=== PATIENT | male | born 1950 | race Caucasian/White ===

== ENCOUNTER 2016-07-30 22:06 | Inpatient (IN) | payer OTHER, MEDICARE ==
[2016-07-30] VITALS (7 sets, daily range): BP systolic 149–165; BP diastolic 75–97; PULSE 75–93; RESP 16–18; TEMP 98.6; O2SAT 97–98
[~2016-07-30] VITALS: Ht 177.8 cm; Wt 118.5 kg
--- NOTE | 2016-07-30 22:25 | PD ---
HPI Chief Complaint: Chest Pain Time Seen by Provider: 22:10 Travel History International Travel<30 days: No Contact w/Intl Traveler<30days: No Traveled to known affect area: No History of Present Illness HPI This 66-year-old male is complaining of chest pressure. He says over the last couple of days he's had about 4 episodes of chest pressure. It is a substernal pressure that lasts 15 minutes or so. It came on after eating initially and subsequent episodes of also occurred after eating. He gets a little bit cold and clammy with the discomfort. He has had a little bit of shortness of breath. There is no radiation. He has no history of cardiac disease. He has had hypertension in the past and was on medication but was able to come off the medicine will also weight area he was told a few weeks ago that he had an irregular heartbeat when he went for acupuncture. He cut back on coffee and he believes that heartbeat became regular. He has recently gone back to coughing again. He did take an aspirin 325 mg prior to coming here. PFSH Social History Tobacco Use: No Allergies-Medications (Allergen,Severity, Reaction): Coded Allergies: No Known Allergies (Unverified , 07/30/16) Reported Meds & Prescriptions Reported Meds & Active Scripts Active Reported Multiple Vitamin 1 Tab 1 Tab PO DAILY Vitamin B-12 (Cyanocobalamin) 1,000 Mcg Tab 1,000 Mcg PO DAILY Vitamin D (Cholecalciferol) 1,000 Unit Tab 1,000 Units PO DAILY Vitamin E 200 Unit Cap 200 Units PO DAILY Vitamin C (Ascorbic Acid) 250 Mg Tab 250 Mg PO DAILY Fish Oil + D3 (Fish Oil-Cholecalciferol) 1,200-1,000 Mg-Unit Cap 1 Cap PO DAILY Aspirin Low Dose (Aspirin) 81 Mg Chew 81 Mg CHEW DAILY Review of Systems General / Constitutional: No: Fever, Chills Eyes: No: Diploplia, Blurred Vision HENT: No: Headaches, Vertigo Cardiovascular: Positive: Chest Pain or Discomfort, No: Palpitations, Irregular Rhythm Respiratory: No: Cough, Shortness of Breath Gastrointestinal: No: Vomiting Genitourinary: No: Urgency, Frequency Musculoskeletal: No: Myalgias Skin: No Rash Neurologic: No: Weakness Hematologic/Lymphatic: No: Easy Bruising Physical Exam Narrative GENERAL: Well-developed male. SKIN: Focused skin assessment warm and clammy on arrival HEAD: Atraumatic. Normocephalic. EYES: Pupils equal and round. No scleral icterus. No injection or drainage. ENT: No nasal bleeding or discharge. Mucous membranes pink and moist. NECK: Trachea midline. No JVD. CARDIOVASCULAR: Regular rate and rhythm. No murmur appreciated. RESPIRATORY: No accessory muscle use. Clear to auscultation. Breath sounds equal bilaterally. GASTROINTESTINAL: Abdomen soft, non-tender, nondistended. Hepatic and splenic margins not palpable. MUSCULOSKELETAL: No obvious deformities. No clubbing. No cyanosis. No edema. NEUROLOGICAL: Awake and alert. No obvious cranial nerve deficits. Motor grossly within normal limits. Normal speech. PSYCHIATRIC: Appropriate mood and affect; insight and judgment normal. Data Data Last Documented VS Vital Signs Date Time Temp Pulse Resp B/P Pulse Ox O2 Delivery O2 Flow Rate FiO2 07/30/16 23:17 161/87 07/30/16 23:05 77 07/30/16 22:45 98 Nasal Cannula 2 07/30/16 22:06 98.6 18 Orders Electrocardiogram (07/30/16 22:19) Basic Metabolic Panel (Bmp) (07/30/16 22:19) B-Type Natriuretic Peptide (07/30/16 22:19) Complete Blood Count With Diff (07/30/16 22:19) Magnesium (Mg) (07/30/16 22:19) Prothrombin Time / Inr (Pt) (07/30/16 22:19) Act Partial Throm Time (Ptt) (07/30/16 22:19) Troponin I (07/30/16 22:19) Chest, Single Ap (07/30/16 22:19) Ecg Monitoring (07/30/16 22:19) Bilateral Bp Monitoring (07/30/16 22:19) Iv Access Insert/Monitor (07/30/16 22:19) Oximetry (07/30/16 22:19) Oxygen Administration (07/30/16 22:19) Sodium Chloride 0.9% Flush (Ns Flush) (07/30/16 22:30) Nitroglycerin Sl (Nitrostat Sl) (07/30/16 22:30) Nitroglycerin 2% Oint (Nitroglycerin 2% (07/30/16 22:30) Nitroglycerin Sl (Nitrostat Sl) (07/30/16 23:15) Nitroglycerin-Dextrose Inj (Nitroglyceri (07/30/16 23:15) Heparin Infusion AMY.Q1H (07/30/16 23:06) Heparin Inj (Heparin Inj) (07/30/16 23:15) Heparin Inj (Heparin Inj) (07/31/16 05:15) Heparin Inj (Heparin Inj) (07/31/16 05:15) Heparin-D5w Inj (Heparin-D5w Inj) (07/30/16 23:15) Cbc No Diff, Includes Plts (08/02/16 06:00) Act Partial Throm Time (Ptt) (07/31/16 06:06) Occult Blood (Hemoccult) Stool (07/30/16 23:06) Admit Order (Ed Use Only) (07/30/16 23:15) Consult Cardiology (07/30/16 ) Labs Laboratory Tests Test 07/30/16 22:15 White Blood Count 7.6 TH/MM3 Red Blood Count 5.44 MIL/MM3 Hemoglobin 16.0 GM/DL Hematocrit 47.9 % Mean Corpuscular Volume 88.0 FL Mean Corpuscular Hemoglobin 29.5 PG Mean Corpuscular Hemoglobin 33.5 % Concent Red Cell Distribution Width 12.8 % Platelet Count 199 TH/MM3 Mean Platelet Volume 8.6 FL Neutrophils (%) (Auto) 59.7 % Lymphocytes (%) (Auto) 27.4 % Monocytes (%) (Auto) 10.1 % Eosinophils (%) (Auto) 1.3 % Basophils (%) (Auto) 1.5 % Neutrophils # (Auto) 4.5 TH/MM3 Lymphocytes # (Auto) 2.1 TH/MM3 Monocytes # (Auto) 0.8 TH/MM3 Eosinophils # (Auto) 0.1 TH/MM3 Basophils # (Auto) 0.1 TH/MM3 CBC Comment DIFF FINAL Differential Comment Prothrombin Time 10.7 SEC Prothromb Time International 1.0 RATIO Ratio Activated Partial 27.8 SEC Thromboplast Time Sodium Level 143 MEQ/L Potassium Level 4.2 MEQ/L Chloride Level 106 MEQ/L Carbon Dioxide Level 31.1 MEQ/L Anion Gap 6 MEQ/L Blood Urea Nitrogen 20 MG/DL Creatinine 1.60 MG/DL Estimat Glomerular Filtration 43 ML/MIN Rate Random Glucose 126 MG/DL Calcium Level 8.7 MG/DL Magnesium Level 2.3 MG/DL Troponin I LESS THAN 0.02 NG/ML B-Type Natriuretic Peptide 240 PG/ML MDM Medical Decision Making Medical Screen Exam Complete: Yes Emergency Medical Condition: Yes Medical Record Reviewed: Yes Differential Diagnosis Differential includes unstable angina, MO, gastritis, cholecystitis Narrative Course His initial EKG shows a sinus rhythm with quite frequent PVCs. He has a pattern of a sinus beat followed by 2 consecutive multiform PVCs. He does appear to be some ST depression in the sinus beats that about a millimeter in the inferior and lateral leads. Patient had taken aspirin at home. He was given a sublingual nitroglycerin and this has relieved his pressure fairly quickly. A repeat EKG has been done and shows sinus rhythm. At this time he appears to be in trigeminy with every third beat a PVC. He does have some minimal ST depression in V4 V5 and V6. Chest x-ray shows normal size heart. Lung berry are clear. Patient has had a recurrence of the pain and has been given an additional nitroglycerin sublingual. He will be started on a nitroglycerin drip. His initial troponin has come back normal. Case was discussed with Dr. Menjivar who asked that he be transferred to [facility] [place] Diagnosis Primary Impression: Acute coronary syndrome Additional Impression: Dysrhythmia, cardiac Qualified Code: I49.8 - Other cardiac arrhythmia Admitting Information Admitting Physician Requests: Admit Phill Martins MD July 30, 2016 22:25
[2016-07-30] MEDS ORDERED: NITROGLYCERIN 2% OINT 1 GM PACKET TOPICAL ONE (22:30)
[2016-07-30] MEDS ORDERED: SODIUM CHLORIDE 0.9% FLUSH 10 ML FLUSH IVF PRN (22:30)
[2016-07-30] MEDS ORDERED: NITROGLYCERIN 0.4 MG SL 25 TABS/BTL SL ONE ×2 (22:30→23:15)
[2016-07-30 22:36] LABS: AUTOMATED NEUTROPHIL # 4.5 TH/MM3 (1.8-7.7); BASOPHIL # 0.1 TH/MM3 (0-0.2); BASOPHIL % 1.5 % (0.0-2.0); EOSINOPHIL # 0.1 TH/MM3 (0-0.4); EOSINOPHIL % 1.3 % (0.0-4.0); HEMATOCRIT 47.9 % (39.0-51.0); HEMO FLAGS DIFF FINAL; LYMPH % 27.4 % (9.0-44.0); LYMPHOCYTE # 2.1 TH/MM3 (1.0-4.8); MEAN CORPUSCULAR HEMOGLOBIN 29.5 PG (27.0-34.0); MEAN CORPUSCULAR HGB CONC 33.5 % (32.0-36.0); MONO % 10.1 % (0.0-8.0); NEUT % 59.7 % (16.0-70.0); PLATELET COUNT 199 TH/MM3 (150-450); RED BLOOD COUNT 5.44 MIL/MM3 (4.50-5.90); RED CELL DISTRIBUTION WIDTH 12.8 % (11.6-17.2); WHITE BLOOD COUNT 7.6 TH/MM3 (4.0-11.0)
[2016-07-30 22:45] LABS: CHLORIDE 106 MEQ/L (98-107); POTASSIUM 4.2 MEQ/L (3.5-5.1); SODIUM (NA) 143 MEQ/L (136-145)
[2016-07-30 22:48] LABS: ANION GAP 6 MEQ/L (5-15); BICARBONATE 31.1 MEQ/L (21.0-32.0); BLOOD UREA NITROGEN 20 MG/DL (7-18); MAGNESIUM 2.3 MG/DL (1.5-2.5)
--- NOTE | 2016-07-30 22:50 | RADHPO ---
EXAM DATE/TIME: 07/30/2016 22:33 [facility] COMPARISON: No previous studies available for comparison. INDICATIONS : Chest pain. MEDICAL HISTORY : None. SURGICAL HISTORY : None. ENCOUNTER: Initial ACUITY: 3 days PAIN SCORE: 7/10 LOCATION: Bilateral chest FINDINGS: A single view of the chest demonstrates the lungs to be symmetrically aerated without evidence of mas s, infiltrate or effusion. The cardiomediastinal contours are unremarkable. Osseous structures are intact. CONCLUSION: Normal examination. Cristhian Bates Jr., MD on July 30, 2016 at 22:48 Board Certified Radiologist. This report was verified electronically.
[2016-07-30 22:51] LABS: GLOMERULAR FILTRATION RATE 43 ML/MIN (>89)
[2016-07-30] MEDS ORDERED: VITA200C3 PO (23:02)
[2016-07-30] MEDS ORDERED: FISHCAP4 PO (23:02)
[2016-07-30] MEDS ORDERED: VITA100064 PO (23:02)
[2016-07-30] MEDS ORDERED: VITA10002 PO (23:02)
[2016-07-30] MEDS ORDERED: VITA250T3 PO (23:02)
[2016-07-30] MEDS ORDERED: MULTTAB67 PO (23:02)
[2016-07-30] MEDS ORDERED: ASPI81CH37 CHEW (23:02)
[2016-07-30 23:04] LABS: APTT (PATIENT) 27.8 SEC (24.3-30.1); PROTHROMBIN TIME - PATIENT 10.7 SEC (9.8-11.6)
[2016-07-30] MEDS ORDERED: HEPARIN SODIUM - IV 10,000 UNITS/10 ML VIAL IV ONE (23:15)
[2016-07-30] MEDS ORDERED: NITROGLYCERIN-DEXTROSE INJ 250 ML IV ONE (23:15)
[2016-07-30] MEDS ORDERED: HEPARIN-D5W INJ 250 ML IV SCH (23:15)
[2016-07-30] MEDS ORDERED: MORPHINE SULFATE 4 MG/ML INJ IV PRN (23:45)
[2016-07-30] MEDS ORDERED: ONDANSETRON HCL 4 MG/2 ML VIAL IVP PRN (23:45)
[2016-07-30] MEDS ORDERED: SENNOSIDES 8.6 MG TAB PO PRN (23:45)
[2016-07-30] MEDS ORDERED: SODIUM CHLORIDE 0.9% FLUSH 10 ML FLUSH IV FLUSH PRN (23:45)
[2016-07-30] MEDS ORDERED: LACTULOSE SYRUP 20 GM/30 ML CUP PO PRN (23:45)
[2016-07-30] MEDS ORDERED: BISACODYL 10 MG SUPP RECTAL PRN (23:45)
[2016-07-30] MEDS ORDERED: MAGNESIUM HYDROXIDE SUSP 30 ML CUP PO PRN (23:45)
[2016-07-30] MEDS ORDERED: ACETAMINOPHEN 325 MG TAB PO PRN (23:45)
[2016-07-30] MEDS ORDERED: ACETAMINOPHEN/HYDROcodone 325 MG/5 MG TAB PO PRN (23:45)
[2016-07-31] VITALS (26 sets, daily range): BP systolic 106–171; BP diastolic 54–95; PULSE 49–84; RESP 12–20; TEMP 97.4–98.7; O2SAT 94–100
[2016-07-31] MEDS: SODIUM CHLOR 0.9% 1000 ML INJ 1,000 ML IV SCH ×3 (03:19→19:31)
--- NOTE | 2016-07-31 03:56 | HHI.HP ---
[facility] Bam Nassar MD Admission Diagnosis ACUTE CORONARY SYDROME Diagnoses: Chief Complaint: Chest pain Travel History International Travel<30 Days: No Contact w/Intl Traveler <30 Da: No Traveled to Known Affected Are: No History of Present Illness This 66-year-old male patient with past medical history which includes hypertension is no longer on medication after weight loss, borderline hyperlipidemia reports he does not take any medications for his cholesterol just watches his diet. Patient reports he's been in his normal state of health which includes going to the gym regularly and an, "active lifestyle." Patient reports for the past 3 days he's been having chest pain after eating. Chest pain offers only after meals and typically lasts 30 minutes then resolve spontaneously. Patient reports chest pain started this evening after dinner and did not resolve so he proceeded to the emergency department for further evaluation and treatment. Patient describes the chest pain as a pressure sensation located in midsternal area 7 out of 10 at its maximum with no radiation. Chest pain did have associated shortness of breath and diaphoresis. Chest pain is not affected by activity. This evening chest pain resolved after sublingual nitroglycerin. Patient is currently on heparin as well as nitroglycerin drip and reports he has no chest pain. EKG reviewed and reveals sinus rhythm rate 88 bpm with frequent PVCs and ST depression V4, V5 and V6. 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 Patient reports he did have coffee approximately 8 PM this evening. Patient denies recent travel, lower extremity edema, calf pain, fevers, chills, nausea, vomiting, diarrhea, constipation, changes in weight, abdominal pain or changes in appetite. Patient also denies any history of GERD. Review of Systems Except as stated in HPI: all other systems reviewed are Neg Past Family Social History Past Medical History Hypertension the past no longer on medication after weight loss, borderline hyperlipidemia not on medication Past Surgical History Bilateral inguinal hernia repair, bilateral blepharoplasty Reported Medications Multiple Vitamin 1 Tab 1 Tab PO DAILY Vitamin B-12 (Cyanocobalamin) 1,000 Mcg Tab 1,000 Mcg PO DAILY Vitamin D (Cholecalciferol) 1,000 Unit Tab 1,000 Units PO DAILY Vitamin E 200 Unit Cap 200 Units PO DAILY Vitamin C (Ascorbic Acid) 250 Mg Tab 250 Mg PO DAILY Fish Oil + D3 (Fish Oil-Cholecalciferol) 1,200-1,000 Mg-Unit Cap 1 Cap PO DAILY Aspirin Low Dose (Aspirin) 81 Mg Chew 81 Mg CHEW DAILY Allergies: Coded Allergies: No Known Allergies (Unverified , 07/30/16) Active Ordered Medications Current Medications Medications (Trade) Dose Ordered Sig/Carolin Route Start Time Stop Time Status Last Admin (Heparin Inj) 5,000 units UNSCH PRN IV 07/31/16 05:15 Heparin Sodium (Porcine) 2500 units 2,500 units UNSCH PRN IV 07/31/16 05:15 Heparin Sodium/ Dextrose 250 ml @ 0 mls/hr TITRATE IV 07/30/16 23:15 07/30/16 23:24 (NS 1000 ml Inj) 1,000 ml @ 100 mls/hr Q10H IV 07/30/16 23:31 07/31/16 03:19 (NS Flush) 2 ml UNSCH PRN IV FLUSH 07/30/16 23:45 (NS Flush) 2 ml BID IV FLUSH 07/31/16 09:00 (Zofran Inj) 4 mg Q6H PRN IVP 07/30/16 23:45 (Tylenol) 650 mg Q6H PRN PO 07/30/16 23:45 (Downey 5-325 Mg) 1 tab Q4H PRN PO 07/30/16 23:45 (Morphine Inj) 2 mg Q3H PRN IV 07/30/16 23:45 (Cyndi-Colace) 1 tab BID PO 07/31/16 09:00 (Milk Of Magnesia Liq) 30 ml Q12H PRN PO 07/30/16 23:45 (Senokot) 17.2 mg Q12H PRN PO 07/30/16 23:45 (Dulcolax Supp) 10 mg DAILY PRN RECTAL 07/30/16 23:45 (Lactulose Liq) 30 ml DAILY PRN PO 07/30/16 23:45 Family History Patient's mother secondary to cervical cancer Patient's father in his 70s in his sleep of unknown causes did have CAD history with a CABG in his 70s Social History Patient lives at home with his 47 years Is retired from construction business [employer] he drinks one to 2 glasses of wine a few days a week with dinner not on a daily basis Denies tobacco use now or in the past Denies illicit drug use Physical Exam Vital Signs Vital Signs Date Time Temp Pulse Resp B/P Pulse Ox O2 Delivery O2 Flow Rate FiO2 07/31/16 03:00 97.8 62 12 147/77 98 07/31/16 01:50 62 121/66 96 Nasal Cannula 2 07/31/16 01:20 66 126/74 97 Nasal Cannula 2 07/31/16 00:19 72 16 137/72 98 Nasal Cannula 2 07/30/16 23:42 77 16 152/75 97 Nasal Cannula 2 07/30/16 23:17 161/87 07/30/16 23:05 77 156/86 07/30/16 22:45 75 162/76 98 Nasal Cannula 2 07/30/16 22:30 80 165/77 97 Nasal Cannula 2 07/30/16 22:20 149/97 07/30/16 22:13 Nasal Cannula 2 07/30/16 22:10 93 07/30/16 22:06 98.6 93 18 97 Physical Exam GENERAL: This is a well-nourished, well-developed patient, in no apparent distress. SKIN: No rashes, ecchymoses or lesions. Cool and dry. HEAD: Atraumatic. Normocephalic. No temporal or scalp tenderness. EYES: Extraocular motions intact. No scleral icterus. No injection or drainage. CARDIOVASCULAR: Regular rate and rhythm without murmurs, gallops, or rubs. RESPIRATORY: Clear to auscultation. Breath sounds equal bilaterally. No wheezes , rales, or rhonchi. GASTROINTESTINAL: Abdomen soft, non-tender, nondistended. No guarding. MUSCULOSKELETAL: Extremities without clubbing, cyanosis, or edema. No joint tenderness, effusion, or edema noted. No calf tenderness. Negative Homans sign bilaterally. NEUROLOGICAL: Awake and alert. No focal deficits appreciated. Motor and sensory grossly within normal limits. Five out of 5 muscle strength in all muscle groups. Normal speech. Laboratory Laboratory Tests Test 07/30/16 22:15 White Blood Count 7.6 Red Blood Count 5.44 Hemoglobin 16.0 Hematocrit 47.9 Mean Corpuscular Volume 88.0 Mean Corpuscular Hemoglobin 29.5 Mean Corpuscular Hemoglobin 33.5 Concent Red Cell Distribution Width 12.8 Platelet Count 199 Mean Platelet Volume 8.6 Neutrophils (%) (Auto) 59.7 Lymphocytes (%) (Auto) 27.4 Monocytes (%) (Auto) 10.1 Eosinophils (%) (Auto) 1.3 Basophils (%) (Auto) 1.5 Neutrophils # (Auto) 4.5 Lymphocytes # (Auto) 2.1 Monocytes # (Auto) 0.8 Eosinophils # (Auto) 0.1 Basophils # (Auto) 0.1 CBC Comment DIFF FINAL Differential Comment Prothrombin Time 10.7 Prothromb Time International 1.0 Ratio Activated Partial 27.8 Thromboplast Time Sodium Level 143 Potassium Level 4.2 Chloride Level 106 Carbon Dioxide Level 31.1 Anion Gap 6 Blood Urea Nitrogen 20 Creatinine 1.60 Estimat Glomerular Filtration 43 Rate Random Glucose 126 Calcium Level 8.7 Magnesium Level 2.3 Troponin I LESS THAN 0.02 B-Type Natriuretic Peptide 240 Result Diagram: 07/30/16221407/30/162214 Assessment and Plan Problem List: (1) Chest pain ICD Code: R07.9 Status: Acute (2) Dysrhythmia, cardiac ICD Code: I49.9 Status: Acute Assessment and Plan This 66-year-old male patient with past medical history which includes hypertension and is no longer on medication after weight loss, borderline hyperlipidemia reports he does not take any medications. Patient reports she's been in his normal state of health which includes going to the gym regularly and an, "active lifestyle." Patient reports for the past 3 days he's been having chest pain after eating. Chest pain rule out acute coronary syndrome Initial troponin less than 0.02 Serial enzymes and serial EKGs Initial EKG reveals sinus rhythm rate 88 bpm with frequent PVCs and ST depression V4, V5 and V6 Chest x-ray reviewed and reveals normal exam Heparin drip Nitroglycerin drip Nothing by mouth with normal saline at 100 cc/h Continuous cardiac telemetry 2-D echocardiogram ordered and pending Lipid profile in a.m. Patient takes aspirin daily Will continue daily aspirin dose Nothing by mouth except meds Consultation placed to cardiology Dysrhythmia- sinus rhythm with frequent PVCs/ trigeminy Potassium 4.2, magnesium 2.3 Continuous telemetry monitoring 2-D echocardiogram in a.m. Recheck CMP in a.m. History of hypertension not currently on medication Monitor blood pressure trend Acute kidney injury versus chronic kidney disease Avoid nephrotoxins IV hydration Recheck in a.m. DVT prophylaxis patient is currently on heparin drip Discussed with nursing patient patient's at bedside and Dr. Rodrigez Physician Certification 2 Midnight Certification Type: Admission for Inpatient Services Order for Inpatient Services The services are ordered in accordance with Medicare regulations or non- Medicare payer requirements, as applicable. In the case of services not specified as inpatient-only, they are appropriately provided as inpatient services in accordance with the 2-midnight benchmark. Estimated LOS (days): 2 days is the estimated time the patient will need to remain in the hospital, assuming treatment plan goals are met and no additional complications. Post-Hospital Plan: Home Problem Qualifiers (1) Dysrhythmia, cardiac: Qualified Code: I49.8 - Other cardiac arrhythmia Tika Srivastava July 31, 2016 03:56
[2016-07-31 04:55] LABS: APTT (PATIENT) 93.7 SEC (24.3-30.1)
[2016-07-31] MEDS ORDERED: HEPARIN SODIUM - IV 10,000 UNITS/10 ML VIAL IV PRN ×4 (05:15→16:45)
[2016-07-31] MEDS: ASPIRIN EC 81 MG TABEC PO SCH (08:50)
[2016-07-31] MEDS: SODIUM CHLORIDE 0.9% FLUSH 10 ML FLUSH IV FLUSH SCH ×2 (08:50→21:00)
[2016-07-31] MEDS: DOCUSATE SODIUM 50 MG/SENNA 8.6 MG TAB PO SCH ×2 (08:50→21:41)
[2016-07-31] MEDS ORDERED: amLODIPine BESYLATE 5 MG TAB PO ONE (10:30)
[2016-07-31] MEDS ORDERED: MORPHINE SULFATE 8 MG/ML INJ ONE (11:22)
--- NOTE | 2016-07-31 11:44 | EC ---
Study Study Date:07/31/2016 STUDY CONCLUSIONS SUMMARY - Left ventricle: The cavity size was normal. Wall thickness was normal. Systolic function was mildly reduced. The estimated ejection fraction was in the range of 45% to 50%. Regional wall motion abnormalities cannot be excluded. - Mitral valve: Mild to moderate regurgitation. - Tricuspid valve: Mild regurgitation. - Pulmonary arteries: Systolic pressure was mildly to moderately increased. PA peak pressure: 66mm Hg (S). If LV function is below 40, please consider prescribing an ACEI or ARB or document rationale for non-use. PROCEDURE DATA STUDY STATUS: Elective. Procedure: Transthoracic echocardiography. Image quality was fair. Scanning was performed from the parasternal, apical, and subcostal acoustic windows. Study completion: The patient tolerated the procedure well. Transthoracic echocardiography. M-mode, complete 2D, complete spectral Doppler, and color Doppler. Patient status: Inpatient. CARDIAC ANATOMY LEFT VENTRICLE: The cavity size was normal. Wall thickness was normal. Systolic function was mildly reduced. The estimated ejection fraction was in the range of 45% to 50%. Regional wall motion abnormalities cannot be excluded. AORTIC VALVE: Not well visualized. Normal thickness leaflets. Doppler: Transvalvular velocity was within the normal range. There was no stenosis. No regurgitation. AORTA: Aortic root: The aortic root was normal in size. MITRAL VALVE: Structurally normal valve. Doppler: Transvalvular velocity was within the normal range. There was no evidence for stenosis. Mild to moderate regurgitation. LEFT ATRIUM: The atrium was normal in size. RIGHT VENTRICLE: Poorly visualized. The cavity size was normal. Wall thickness was normal. PULMONIC VALVE: Poorly visualized. Doppler: Transvalvular velocity was within the normal range. There was no evidence for stenosis. Trace regurgitation. TRICUSPID VALVE: Poorly visualized. Structurally normal valve. Doppler: Transvalvular velocity was within the normal range. Mild regurgitation. PULMONARY ARTERY: The main pulmonary artery was normal-sized. Systolic pressure was mildly to moderately increased. RIGHT ATRIUM: Poorly visualized. The atrium was normal in size. PERICARDIUM: There was no pericardial effusion. SYSTEMIC VEINS: Inferior vena cava: The vessel was dilated. BASIC MEASUREMENTS ADULT Normal Left ventricle LV internal dimension, ED, chordal level, 48.6 mm 43-52 PLAX LV internal dimension, ES, chordal level, *39.6 mm 23-38 PLAX Fractional shortening, chordal level, PLAX *19 % >29 LV posterior wall thickness, ED 8.55 mm IVS/LVPW ratio, ED 1.16 <1.3 Ventricular septum Septal thickness, ED 9.93 mm Aortic valve Leaflet separation 21 mm 15-26 Left atrium Anterior-posterior dimension 44 mm Right ventricle RV internal dimension, ED, PLAX 20.7 mm 19-38 BASIC MEASUREMENTS ADULT Normal Aortic valve Leaflet separation 21 mm 15-26 Aorta Root diameter, ED 31 mm 20-37 DOPPLER MEASUREMENTS ADULT Normal Main pulmonary artery Pressure, S *66 mm Hg =30 Mitral valve Maximal regurgitant velocity 581 cm/s Tricuspid valve Regurgitant peak velocity 357 cm/s Peak RV-RA gradient, S 51 mm Hg Maximal regurgitant velocity 357 cm/s Systemic veins Estimated CVP 15 mm Hg Right ventricle RV pressure, S *66 mm Hg <30 LEGEND: Mean values are shown as u=mean value. Asterisk (*) abrams values outside specified normal range. Prepared and signed by Jose Buck [id number]
[2016-07-31] MEDS ORDERED: MORPHINE SULFATE 8 MG/ML INJ IV PUSH ONE (12:00)
[2016-07-31 12:30] LABS: AUTOMATED NEUTROPHIL # 5.6 TH/MM3 (1.8-7.7); BASOPHIL % 0.2 % (0.0-2.0); EOSINOPHIL # 0.1 TH/MM3 (0-0.4); EOSINOPHIL % 0.9 % (0.0-4.0); HEMATOCRIT 42.7 % (39.0-51.0); HEMO FLAGS DIFF FINAL; LYMPH % 13.6 % (9.0-44.0); MEAN CORPUSCULAR HEMOGLOBIN 29.2 PG (27.0-34.0); MONO % 8.3 % (0.0-8.0); PLATELET COUNT 141 TH/MM3 (150-450); RED BLOOD COUNT 4.96 MIL/MM3 (4.50-5.90); RED CELL DISTRIBUTION WIDTH 13.4 % (11.6-17.2); WHITE BLOOD COUNT 7.2 TH/MM3 (4.0-11.0)
[2016-07-31 12:55] LABS: ALKALINE PHOSPHATASE 62 U/L (45-117); ALT (GPT) 35 U/L (12-78); ANION GAP 6 MEQ/L (5-15); AST (GOT) 19 U/L (15-37); BICARBONATE 30.1 MEQ/L (21.0-32.0); BLOOD UREA NITROGEN 19 MG/DL (7-18); CHLORIDE 105 MEQ/L (98-107); GLOMERULAR FILTRATION RATE 76 ML/MIN (>89); HDL CHOLESTEROL 33.6 MG/DL (40.0-60.0); LDL CHOLESTEROL 110 MG/DL (0-99); SODIUM (NA) 141 MEQ/L (136-145); TOTAL BILIRUBIN ADULT 0.5 MG/DL (0.2-1.0)
[2016-07-31] MEDS ORDERED: ATROPINE SULFATE 1 MG/10 ML SYRINGE ONE ×2 (13:39→15:02)
[2016-07-31] MEDS ORDERED: EPINEPHrine HCL (1:10,000) 1 MG/10 ML SYRINGE ONE (13:39)
--- NOTE | 2016-07-31 13:47 | MB ---
cc: FLORENTIN BARBOAS M.D. DATE OF CONSULTATION: 07/31/2016. REASON FOR CONSULTATION: Chest pain, PVCs. HISTORY OF PRESENT ILLNESS: The patient is a very pleasant 66-year-old white male with a history of hypertension, although he no longer takes medications after his blood pressure normalized after weight loss, history of hyperlipidemia who presented to the hospital in [place] last night with chest discomfort. For the past three days he has had intermittent episodes of substernal chest discomfort described as "indigestion" and "congestion". The episodes have been occurring after meals. They were lasting as long as 30 minutes up until last night when the discomfort did not go way. He believes last night's episode lasted 60 minutes and was associated with shortness of breath without nausea or diaphoresis. This morning he has abdominal bloating and increased burping. He denies any recurrent chest discomfort since last night. The patient also denies pleurisy, pedal edema, paroxysmal nocturnal dyspnea, palpitations, lightheadedness, syncope, near-syncope. PAST MEDICAL HISTORY: As above. CARDIAC MEDICATIONS AT HOME: Aspirin 81 milligrams daily. ALLERGIES: NO KNOWN DRUG ALLERGIES. FAMILY HISTORY: The patient's father underwent bypass surgery in his 70s. There is no significant family history of early myocardial infarction. SOCIAL HISTORY: The patient denies any history of alcohol or tobacco abuse. REVIEW OF SYSTEMS: Review of systems as in the history of present illness otherwise negative or noncontributory. He also denies headache, abdominal pain, melena, dyspepsia, bright red blood per rectum. PHYSICAL EXAMINATION: VITAL SIGNS: On physical examination his blood pressure is 157/95 with a pulse of 50, respirations 20. GENERAL: In general he is a well-developed, well-nourished white male in no acute distress. HEAD, EYES, EARS, NOSE, THROAT: On HEENT examination, jugular venous pressure is normal. Carotid pulses are 2+ bilaterally and without bruits. CHEST: Examination of the chest reveals unlabored respiratory effort with clear lung berry. CARDIAC: On cardiac examination he has a regular rhythm and rate without S3, S4 or murmur. ABDOMEN: On abdominal examination, he has a soft, obese, nontender abdomen. Bowel sounds are present. There is no definite hepatosplenomegaly. EXTREMITIES: Examination of the extremities reveals no clubbing, cyanosis or edema. Peripheral pulses are normal throughout. EKGS: EKG shows sinus rhythm with frequent PVCs, nonspecific anterolateral S-T abnormalities. LABORATORY DATA: Laboratory data includes potassium 4.2, BUN 20, creatinine 1.60. Negative cardiac enzymes. Normal CBC. IMAGING STUDIES: Chest x-ray shows no acute disease. IMPRESSION: Chest pains in this 66-year-old white male with a history of hypertension and hyperlipidemia. Some of the symptoms are very atypical for myocardial ischemia. Some of the symptoms are more suggestive of a GI origin. Cardiac enzymes are negative for myocardial infarction despite fairly prolonged chest discomfort last night. On the other hand, he does have risk factors for coronary disease. He did have some minor S-T segment changes on his initial EKG last night. Clinical suspicion for pulmonary embolism or aortic dissection is extremely low. RECOMMENDATIONS: 1. Await his 2-D echo. 2. No beta jamar with his relatively low heart rates. 3. Check a Lexiscan nuclear stress test. Depending on the results of this test and his clinical course, will either recommend medical therapy or invasive cardiac evaluation. MD MINDI Gruber/MAMIE /10:29 AM /1:43 PM ANTONIA
--- NOTE | 2016-07-31 13:57 | HHI.PR ---
Subjective Remarks Follow-up for chest pain Patient had one episode of chest pain this morning which was relieved with morphine. Patient stated he saw the detonator assembler earlier today and he is in again nuclear stress test. Patient's and daughters at the bedside. Patient denies any shortness of breathing, palpitation, lightheadedness or dizziness. Patient stated that he has no history of kidney disease. Objective Vitals Vital Signs Date Time Temp Pulse Resp B/P Pulse Ox O2 Delivery O2 Flow Rate FiO2 07/31/16 08:30 98.2 51 20 157/95 94 07/31/16 06:00 58 07/31/16 05:00 66 07/31/16 04:00 58 07/31/16 03:00 52 07/31/16 03:00 97.8 62 12 147/77 98 07/31/16 01:50 62 121/66 96 Nasal Cannula 2 07/31/16 01:20 66 126/74 97 Nasal Cannula 2 07/31/16 00:19 72 16 137/72 98 Nasal Cannula 2 07/30/16 23:42 77 16 152/75 97 Nasal Cannula 2 07/30/16 23:17 161/87 07/30/16 23:05 77 156/86 07/30/16 22:45 75 162/76 98 Nasal Cannula 2 07/30/16 22:30 80 165/77 97 Nasal Cannula 2 07/30/16 22:20 149/97 07/30/16 22:13 Nasal Cannula 2 07/30/16 22:10 93 07/30/16 22:06 98.6 93 18 97 I/O 07/30/16 07/30/16 07/30/16 07/31/16 07/31/16 07/31/16 07:00 15:00 23:00 07:00 15:00 23:00 Intake Total 525 ml Output Total 400 ml Balance 125 ml Intake Oral 200 ml IV Total 325 ml Output Urine Total 400 ml # Voids 1 # Bowel Movements 1 Result Diagram: 07/31/16 1112 07/31/16 1212 Objective Remarks GENERAL: In no acute distress CARDIOVASCULAR: Regular rate and rhythm without murmurs, gallops, or rubs. RESPIRATORY: Breath sounds equal bilaterally. No accessory muscle use. GASTROINTESTINAL: Abdomen soft, non-tender, nondistended. MUSCULOSKELETAL: No cyanosis, or edema. BACK: Nontender without obvious deformity. No CVA tenderness. Medications and IVs Current Medications Sodium Chloride (NS Flush) 2 ml UNSCH PRN IVF FLUSH AFTER USING IV ACCESS; Start 07/30/16 at 22:30; Stop 07/30/16 at 23:40; Status DC Nitroglycerin (Nitrostat Sl) 0.4 mg ONCE ONCE SL Last administered on 22:26; Start 07/30/16 at 22:30; Stop 07/30/16 at 22:31; Status DC Nitroglycerin (Nitroglycerin 2% Oint) 0.5 inch ONCE ONCE TOPICAL Last administered on 07/30/16 22:33; Start 07/30/16 at 22:30; Stop 07/30/16 at 22:31 ; Status DC Nitroglycerin 0.4 mg 0.4 mg ONCE ONCE SL Last administered on 07/30/16 23:09 ; Start 07/30/16 at 23:15; Stop 07/30/16 at 23:16; Status DC Nitroglycerin/ Dextrose (Nitroglycerin-Dextrose Inj) 250 ml @ 0 mls/hr TITRATE ONCE IV Last administered on 07/30/16 23:41; Start 07/30/16 at 23:15; Stop at 10:33; Status DC Heparin Sodium (Porcine) (Heparin Inj) 6,000 units ONCE ONCE IV Last administered on 07/30/16 23:22; Start 07/30/16 at 23:15; Stop 07/30/16 at 23:16 ; Status DC Heparin Sodium (Porcine) (Heparin Inj) 5,000 units UNSCH PRN IV APTT LESS THAN 25; Start 07/31/16 at 05:15; Stop 07/31/16 at 10:33; Status DC Heparin Sodium (Porcine) 2500 units 2,500 units UNSCH PRN IV APTT 25 TO 39; Start 07/31/16 at 05:15; Stop 07/31/16 at 10:33; Status DC Heparin Sodium/ Dextrose 250 ml @ 0 mls/hr TITRATE IV Last administered on 07/30 23:24; Start 07/30/16 at 23:15; Stop 07/31/16 at 10:33; Status DC Sodium Chloride (NS 1000 ml Inj) 1,000 ml @ 100 mls/hr Q10H IV Last administered on 07/31/16 03:19; Start 07/30/16 at 23:31 Sodium Chloride (NS Flush) 2 ml UNSCH PRN IV FLUSH FLUSH AFTER USING IV ACCESS ; Start 07/30/16 at 23:45 Sodium Chloride (NS Flush) 2 ml BID IV FLUSH ; Start 07/31/16 at 09:00 Ondansetron HCl (Zofran Inj) 4 mg Q6H PRN IVP NAUSEA OR VOMITING; Start at 23:45 Acetaminophen (Tylenol) 650 mg Q6H PRN PO FEVER/PAIN SCALE 1 TO 2; Start at 23:45 Acetaminophen/ Hydrocodone Bitart ([place] 5-325 Mg) 1 tab Q4H PRN PO PAIN SCALE 3 TO 5; Start 07/30/16 at 23:45 Morphine Sulfate (Morphine Inj) 2 mg Q3H PRN IV Pain 6-10; Start 07/30/16 at 23 :45 Senna/Docusate Sodium (Cyndi-Colace) 1 tab BID PO Last administered on 08:50; Start 07/31/16 at 09:00 Magnesium Hydroxide (Milk Of Magnesia Liq) 30 ml Q12H PRN PO MILD - MODERATE CONSTIPATION; Start 07/30/16 at 23:45 Sennosides (Senokot) 17.2 mg Q12H PRN PO MODERATE - SEVERE CONSTIPATION; Start 07/30/16 at 23:45 Bisacodyl (Dulcolax Supp) 10 mg DAILY PRN RECTAL SEVERE CONSITIPATION; Start at 23:45 Lactulose (Lactulose Liq) 30 ml DAILY PRN PO SEVERE CONSITIPATION; Start at 23:45 Aspirin (Ecotrin Ec) 81 mg DAILY PO Last administered on 07/31/16 08:50; Start 07/31/16 at 09:00 Amlodipine Besylate (Norvasc) 5 mg ONCE ONCE PO Last administered on 11:29; Start 07/31/16 at 10:30; Stop 07/31/16 at 10:35; Status DC Morphine Sulfate (Morphine Inj) 8 mg STK-MED ONCE .ROUTE Last administered on 11:28; Start 07/31/16 at 11:22; Stop 07/31/16 at 11:23; Status DC Morphine Sulfate (Morphine Inj) 5 mg NOW ONCE IV PUSH ; Start 07/31/16 at 12:00 ; Stop 07/31/16 at 12:01; Status DC Enalapril Maleate (Vasotec) 5 mg BID PO ; Start 07/31/16 at 21:00 Atropine Sulfate (Atropine Inj) 1 mg STK-MED ONCE .ROUTE ; Start 07/31/16 at 13: 39; Stop 07/31/16 at 13:40; Status DC Epinephrine HCl (EPINEPHrine (1:10,000) INJ) 1 mg STK-MED ONCE .ROUTE ; Start at 13:39; Stop 07/31/16 at 13:40; Status DC A/P Problem List: (1) Chest pain ICD Code: R07.9 Status: Acute (2) Dysrhythmia, cardiac ICD Code: I49.9 Status: Acute Assessment and Plan This 66-year-old male patient with past medical history which includes hypertension and is no longer on medication after weight loss, borderline hyperlipidemia reports he does not take any medications. Patient reports she's been in his normal state of health which includes going to the gym regularly and an, "active lifestyle." Patient reports for the past 3 days he's been having chest pain after eating. Chest pain rule out acute coronary syndrome Initial troponin less than 0.02 and now 0.15 Serial enzymes and serial EKGs Initial EKG reveals sinus rhythm rate 88 bpm with frequent PVCs and ST depression V4, V5 and V6 Chest x-ray reviewed and reveals normal exam On heparin drip and nitroglycerin drip. Nothing by mouth with normal saline at 100 cc/h Continuous cardiac telemetry 2-D echocardiogram showed EF of 45-50%. Mild to moderate regurgitation. On aspirin. Broadcasting Equipment Mechanic consulted and stated that beta jamar contraindicated due to bradycardia. Broadcasting Equipment Mechanic order nuclear stress test. Dysrhythmia- sinus rhythm with frequent PVCs/ trigeminy Potassium 4.2, magnesium 2.3 History of hypertension not currently on medication Monitor blood pressure trend Acute kidney injury versus chronic kidney disease Avoid nephrotoxins IV hydration Follow-up with creatinine. He has good urine output. His stated that she will Dmitry his most recent labs. DVT prophylaxis patient is currently on heparin drip Discharge Planning Patient scheduled for nuclear stress test. Based on results will determine management. Problem Qualifiers (1) Dysrhythmia, cardiac: Qualified Code: I49.8 - Other cardiac arrhythmia Soni Topete MD July 31, 2016 13:57
[2016-07-31] MEDS ORDERED: REGADENOSON INJ 0.4 MG/5 ML SYR ONE (14:19)
--- NOTE | 2016-07-31 15:23 | RADRPT ---
EXAM DATE/TIME: 07/31/2016 13:54 [facility] COMPARISON: No previous studies available for comparison. INDICATIONS : Midsternal chest pain while eating. Angina. DOSE: 25.9 mCi Tc99m Myoview at stress. 8.1 mCi Tc99m Myoview at rest. 0.4 mg Lexiscan STRESS SYMPTOMS: Left arm numbness. EJECTION FRACTION: 44% MEDICAL HISTORY : Hypertension. Hypercholesterolemia. SURGICAL HISTORY : Inguinal hernia repair. Vasectomy. ENCOUNTER: Initial ACUITY: 1 day PAIN SCALE: 7/10 LOCATION: Midsternal chest TECHNIQUE: The patient underwent pharmacologic stress with infusion of prescribed dose. Continuous ECG tracing was monitored during stress. Gated SPECT imaging was performed after stress and conventional SPECT i maging was performed at rest. The examination was performed on a SPECT/CT scanner, both attenuation and non-corrected datasets were reviewed. FINDINGS: The best perfused myocardium at stress is the septum. There is redistribution in the lateral and inf erior wall most prominent in the inferior wall. Part of the inferior wall is obscured by gut activit y. The ejection fraction is 44% with mild hypokinesis inferior wall. CONCLUSION: Redistribution inferior wall at stress felt to be clinically significant.. RISK CATEGORY: Intermediate (1-3% Annual Mortality Rate) Mathew Cardenas MD FACR on July 31, 2016 at 15:18 Board Certified Radiologist. This report was verified electronically.
[2016-07-31] MEDS ORDERED: NITROGLYCERIN-DEXTROSE INJ 250 ML ONE (16:04)
[2016-07-31] MEDS ORDERED: MORPHINE SULFATE 8 MG/ML INJ IV PUSH PRN (16:30)
[2016-07-31] MEDS ORDERED: NITROGLYCERIN/DEXTROSE 5% 250 ML for chest pain IV SCH (16:30)
[2016-07-31] MEDS ORDERED: HEPARIN 25,000 UNITS-D5W 250 ML - PREMIX IV SCH (16:45)
--- NOTE | 2016-07-31 16:54 | EKG ---
Date Performed: 07/30/2016 Time Performed: 22:05:46 PTAGE: 66 years EKG: Sinus rhythm present with complex of multiformed PVCs after the normal QRS complex. This rhythm is repeated. Nons pecific ST-T wave changes on the normal QRS complex. Clinical correlation involve tracings recommende d. NO PREVIOUS TRACING DOCTOR: Matt Fan Interpretating Date/Time 07/31/2016 16:53:29
--- NOTE | 2016-07-31 16:57 | EKG ---
Date Performed: 07/30/2016 Time Performed: 22:27:04 PTAGE: 66 years EKG: Sinus rhythm with frequent PVCs. Extensive ST-T changes are nonspecific Abnormal ECG Since PREVIOUS TRACING 07/30/2016, patient has gone from complex of PVCs after each QRS to a s kenneth PVC permanently after the QRS complex. PREVIOUS TRACIN07/30/2016 22.05 DOCTOR: Matt Fan Interpretating Date/Time 07/31/2016 16:55:08
[2016-07-31] MEDS: ATORVASTATIN 40 MG TAB PO SCH (21:00)
[2016-07-31] MEDS: ENALAPRIL MALEATE 5 MG TAB PO SCH (21:41)
[2016-07-31] MEDS ORDERED: TEMAZEPAM 7.5 MG CAP PO PRN (22:00)
[2016-08-01] VITALS (23 sets, daily range): BP systolic 125–161; BP diastolic 57–87; PULSE 45–68; RESP 12–20; TEMP 97.6–98.1; O2SAT 97–99
[2016-08-01 00:13] LABS: APTT (PATIENT) 36.3 SEC (24.3-30.1)
[2016-08-01 08:16] LABS: APTT (PATIENT) 57.7 SEC (24.3-30.1)
[2016-08-01] MEDS: ENALAPRIL MALEATE 5 MG TAB PO SCH ×2 (08:53→21:09)
[2016-08-01] MEDS: ASPIRIN EC 81 MG TABEC PO SCH (08:53)
[2016-08-01] MEDS: DOCUSATE SODIUM 50 MG/SENNA 8.6 MG TAB PO SCH ×2 (08:54→21:09)
[2016-08-01] MEDS: SODIUM CHLORIDE 0.9% FLUSH 10 ML FLUSH IV FLUSH SCH ×2 (08:54→21:13)
[2016-08-01] MEDS: SODIUM CHLOR 0.9% 1000 ML INJ 1,000 ML IV SCH ×5 (08:57→21:00)
--- NOTE | 2016-08-01 11:19 | PD.CARD.PN ---
Subjective Subjective Remarks No further CP. No dyspnea this morning. Denies palpitations, dizziness. Slept well. Objective Medications Item Value Date Time Enalapril Maleate 5 mg 07/31/16 2100 (Vasotec) BID/PO 08/01/16 0853 Atorvastatin 40 mg 07/31/16 2100 Calcium HS/PO (Lipitor) Heparin Sodium/ 250 ml @ 0 mls/hr 07/31/16 1645 Dextrose TITRATE/IV 07/31/16 1653 Nitroglycerin/ 250 ml @ 0 mls/hr 07/31/16 1630 Dextrose TITRATE/IV Aspirin 81 mg 07/31/16 0900 (Ecotrin Ec) DAILY/PO 08/01/16 0853 Vital Signs / I&O Vital Signs Date Time Temp Pulse Resp B/P Pulse Ox O2 Delivery O2 Flow Rate FiO2 08/01/16 10:08 54 08/01/16 09:00 53 08/01/16 08:00 66 08/01/16 08:00 97.6 57 20 125/63 08/01/16 07:00 56 08/01/16 06:00 52 08/01/16 05:00 62 08/01/16 04:00 50 08/01/16 03:00 50 08/01/16 03:00 97.6 54 12 132/75 98 08/01/16 02:00 52 08/01/16 01:00 68 08/01/16 00:00 56 07/31/16 23:00 98.7 49 14 106/54 96 07/31/16 23:00 54 07/31/16 22:00 60 07/31/16 21:00 62 07/31/16 20:00 68 07/31/16 19:00 97.4 53 14 138/67 95 07/31/16 19:00 78 07/31/16 17:00 58 07/31/16 17:00 54 07/31/16 16:00 60 07/31/16 15:30 157/91 07/31/16 15:15 65 07/31/16 15:15 97.5 68 20 171/91 98 07/31/16 14:00 50 07/31/16 13:00 84 07/31/16 12:00 58 07/31/16 11:15 98.0 58 20 148/86 100 I/O 07/31/16 07/31/16 07/31/16 08/01/16 08/01/16 08/01/16 07:00 15:00 23:00 07:00 15:00 23:00 Intake Total 525 ml 840 ml 1500 ml Output Total 400 ml 1300 ml 1125 ml Balance 125 ml -460 ml 375 ml Intake Oral 200 ml 240 ml 240 ml IV Total 325 ml 600 ml 1260 ml Output Urine Total 400 ml 1300 ml 1125 ml # Voids 1 # Bowel Movements 1 1 Physical Exam GENERAL: Well developed, well nourished. No acute distress. HEENT: Jugular venous pressure is normal. CHEST: Lungs clear to auscultation bilaterally. Unlabored respiratory effort. CARDIAC: Regular rate and rhythm without S3, S4, or murmur. ABDOMEN: Soft, nontender, no hepatosplenomegaly. Bowel sounds present. EXTREMITIES: No clubbing, cyanosis, or edema. Laboratory Laboratory Tests Test 07/31/16 07/31/16 08/01/16 12:12 23:38 07:55 Sodium Level 141 MEQ/L Potassium Level 4.0 MEQ/L Chloride Level 105 MEQ/L Carbon Dioxide Level 30.1 MEQ/L Anion Gap 6 MEQ/L Blood Urea Nitrogen 19 MG/DL Creatinine 0.98 MG/DL Estimat Glomerular Filtration 76 ML/MIN Rate Random Glucose 110 MG/DL Calcium Level 8.2 MG/DL Total Bilirubin 0.5 MG/DL Aspartate Amino Transf 19 U/L (AST/SGOT) Alanine Aminotransferase 35 U/L (ALT/SGPT) Alkaline Phosphatase 62 U/L Troponin I 0.10 NG/ML Total Protein 6.1 GM/DL Albumin 3.6 GM/DL Triglycerides Level 133 MG/DL Cholesterol Level 170 MG/DL LDL Cholesterol 110 MG/DL HDL Cholesterol 33.6 MG/DL Cholesterol/HDL Ratio 5.05 RATIO Activated Partial 36.3 SEC 57.7 SEC Thromboplast Time Assessment and Plan Problem List: (1) Chest pain Assessment and Plan: Stable overnight. No recurrent chest discomfort. Nuclear stress test images reviewed, agree there is inferior ischemia. Patient with recurrent severe CP yesterday after IV nitro stopped. In light of his nuclear stress test findings, ongoing CP's, abnormal troponin levels, rec cath. REC cath today if possible (2) Dilated cardiomyopathy Assessment and Plan: Technically difficult echo though it does seem LV function mildly reduced, EF around 40-45%. No definite segmental wall motion abnormalities. No CHF evident. REC continue JAI-I, no beta jamar with relatively low HR's, recheck echo in 3 months or so (3) Hypertension Assessment and Plan: Normotensive at present. Cont to monitor. (4) Hyperlipidemia Assessment and Plan: Overall suboptimal lipid profile. Rec cont statin. Code Status full code Discussed Condition With patient and family Problem Qualifiers (1) Chest pain: Qualified Code: I20.0 - Unstable angina pectoris (2) Hypertension: Qualified Code: I10 - Essential hypertension (3) Hyperlipidemia: Qualified Code: E78.2 - Mixed hyperlipidemia Titi Menjivar MD August 01, 2016 11:19
[2016-08-01] MEDS ORDERED: diphenhydrAMINE HCL 50 MG CAP PO SCH (11:30)
[2016-08-01] MEDS ORDERED: ASPIRIN 325 MG TAB PO SCH (11:30)
[2016-08-01] MEDS ORDERED: DIAZEPAM 10 MG TAB PO SCH (11:30)
--- NOTE | 2016-08-01 11:36 | HHI.PR ---
Subjective Remarks Follow-up for chest pain. Patient stated that he has not had any chest pain since yesterday. He was restarted on nitro drip yesterday. Patient is making good urine output. Multiple family members at the bedside about 5 of them. He has no other complaints. Objective Vitals Vital Signs Date Time Temp Pulse Resp B/P Pulse Ox O2 Delivery O2 Flow Rate FiO2 08/01/16 10:08 54 08/01/16 09:00 53 08/01/16 08:00 66 08/01/16 08:00 97.6 57 20 125/63 08/01/16 07:00 56 08/01/16 06:00 52 08/01/16 05:00 62 08/01/16 04:00 50 08/01/16 03:00 50 08/01/16 03:00 97.6 54 12 132/75 98 08/01/16 02:00 52 08/01/16 01:00 68 08/01/16 00:00 56 07/31/16 23:00 98.7 49 14 106/54 96 07/31/16 23:00 54 07/31/16 22:00 60 07/31/16 21:00 62 07/31/16 20:00 68 07/31/16 19:00 97.4 53 14 138/67 95 07/31/16 19:00 78 07/31/16 17:00 58 07/31/16 17:00 54 07/31/16 16:00 60 07/31/16 15:30 157/91 07/31/16 15:15 65 07/31/16 15:15 97.5 68 20 171/91 98 07/31/16 14:00 50 07/31/16 13:00 84 07/31/16 12:00 58 I/O 07/31/16 07/31/16 07/31/16 08/01/16 08/01/16 08/01/16 07:00 15:00 23:00 07:00 15:00 23:00 Intake Total 525 ml 840 ml 1500 ml Output Total 400 ml 1300 ml 1125 ml Balance 125 ml -460 ml 375 ml Intake Oral 200 ml 240 ml 240 ml IV Total 325 ml 600 ml 1260 ml Output Urine Total 400 ml 1300 ml 1125 ml # Voids 1 # Bowel Movements 1 1 Result Diagram: 07/31/16 1112 07/31/16 1212 Objective Remarks GENERAL: In no acute distress CARDIOVASCULAR: Regular rate and rhythm without murmurs, gallops, or rubs. RESPIRATORY: Breath sounds equal bilaterally. No accessory muscle use. GASTROINTESTINAL: Abdomen soft, non-tender, nondistended. MUSCULOSKELETAL: No cyanosis, or edema. BACK: Nontender without obvious deformity. No CVA tenderness. Medications and IVs Current Medications Sodium Chloride (NS Flush) 2 ml UNSCH PRN IVF FLUSH AFTER USING IV ACCESS; Start 07/30/16 at 22:30; Stop 07/30/16 at 23:40; Status DC Nitroglycerin (Nitrostat Sl) 0.4 mg ONCE ONCE SL Last administered on 22:26; Start 07/30/16 at 22:30; Stop 07/30/16 at 22:31; Status DC Nitroglycerin (Nitroglycerin 2% Oint) 0.5 inch ONCE ONCE TOPICAL Last administered on 07/30/16 22:33; Start 07/30/16 at 22:30; Stop 07/30/16 at 22:31 ; Status DC Nitroglycerin 0.4 mg 0.4 mg ONCE ONCE SL Last administered on 07/30/16 23:09 ; Start 07/30/16 at 23:15; Stop 07/30/16 at 23:16; Status DC Nitroglycerin/ Dextrose (Nitroglycerin-Dextrose Inj) 250 ml @ 0 mls/hr TITRATE ONCE IV Last administered on 07/30/16 23:41; Start 07/30/16 at 23:15; Stop at 10:33; Status DC Heparin Sodium (Porcine) (Heparin Inj) 6,000 units ONCE ONCE IV Last administered on 07/30/16 23:22; Start 07/30/16 at 23:15; Stop 07/30/16 at 23:16 ; Status DC Heparin Sodium (Porcine) (Heparin Inj) 5,000 units UNSCH PRN IV APTT LESS THAN 25; Start 07/31/16 at 05:15; Stop 07/31/16 at 10:33; Status DC Heparin Sodium (Porcine) 2500 units 2,500 units UNSCH PRN IV APTT 25 TO 39; Start 07/31/16 at 05:15; Stop 07/31/16 at 10:33; Status DC Heparin Sodium/ Dextrose 250 ml @ 0 mls/hr TITRATE IV Last administered on 07/30 23:24; Start 07/30/16 at 23:15; Stop 07/31/16 at 10:33; Status DC Sodium Chloride (NS 1000 ml Inj) 1,000 ml @ 100 mls/hr Q10H IV Last administered on 08/01/16 08:57; Start 07/30/16 at 23:31 Sodium Chloride (NS Flush) 2 ml UNSCH PRN IV FLUSH FLUSH AFTER USING IV ACCESS ; Start 07/30/16 at 23:45 Sodium Chloride (NS Flush) 2 ml BID IV FLUSH Last administered on 08/01/16 08: 54; Start 07/31/16 at 09:00 Ondansetron HCl (Zofran Inj) 4 mg Q6H PRN IVP NAUSEA OR VOMITING; Start at 23:45 Acetaminophen (Tylenol) 650 mg Q6H PRN PO FEVER/PAIN SCALE 1 TO 2; Start at 23:45 Acetaminophen/ Hydrocodone Bitart ([place] 5-325 Mg) 1 tab Q4H PRN PO PAIN SCALE 3 TO 5; Start 07/30/16 at 23:45 Morphine Sulfate (Morphine Inj) 2 mg Q3H PRN IV Pain 6-10; Start 07/30/16 at 23 :45; Stop 07/31/16 at 16:29; Status DC Senna/Docusate Sodium (Cyndi-Colace) 1 tab BID PO Last administered on 08:54; Start 07/31/16 at 09:00 Magnesium Hydroxide (Milk Of Magnesia Liq) 30 ml Q12H PRN PO MILD - MODERATE CONSTIPATION; Start 07/30/16 at 23:45 Sennosides (Senokot) 17.2 mg Q12H PRN PO MODERATE - SEVERE CONSTIPATION; Start 07/30/16 at 23:45 Bisacodyl (Dulcolax Supp) 10 mg DAILY PRN RECTAL SEVERE CONSITIPATION; Start at 23:45 Lactulose (Lactulose Liq) 30 ml DAILY PRN PO SEVERE CONSITIPATION; Start at 23:45 Aspirin (Ecotrin Ec) 81 mg DAILY PO Last administered on 08/01/16 08:53; Start 07/31/16 at 09:00 Amlodipine Besylate (Norvasc) 5 mg ONCE ONCE PO Last administered on 11:29; Start 07/31/16 at 10:30; Stop 07/31/16 at 10:35; Status DC Morphine Sulfate (Morphine Inj) 8 mg STK-MED ONCE .ROUTE Last administered on 11:28; Start 07/31/16 at 11:22; Stop 07/31/16 at 11:23; Status DC Morphine Sulfate (Morphine Inj) 5 mg NOW ONCE IV PUSH ; Start 07/31/16 at 12:00 ; Stop 07/31/16 at 12:01; Status DC Enalapril Maleate (Vasotec) 5 mg BID PO Last administered on 08/01/16 08:53; Start 07/31/16 at 21:00 Atropine Sulfate (Atropine Inj) 1 mg STK-MED ONCE .ROUTE ; Start 07/31/16 at 13: 39; Stop 07/31/16 at 13:40; Status DC Epinephrine HCl (EPINEPHrine (1:10,000) INJ) 1 mg STK-MED ONCE .ROUTE ; Start at 13:39; Stop 07/31/16 at 13:40; Status DC Regadenoson (Lexiscan Inj) 0.4 mg STK-MED ONCE .ROUTE Last administered on 07/31 14:19; Start 07/31/16 at 14:19; Stop 07/31/16 at 14:20; Status DC Atropine Sulfate 1 mg 1 mg STK-MED ONCE .ROUTE ; Start 07/31/16 at 15:02; Stop 07/31/16 at 15:03; Status DC Nitroglycerin/ Dextrose 250 ml @ As Directed STK-MED ONCE .ROUTE Last administered on 07/31/16 16:55; Start 07/31/16 at 16:04; Stop 07/31/16 at 16:05 ; Status DC Nitroglycerin/ Dextrose (Nitroglycerin-Dextrose Inj) 250 ml @ 0 mls/hr TITRATE IV ; Start 07/31/16 at 16:30 Morphine Sulfate 5 mg 5 mg Q2H PRN IV PUSH CHEST PAIN 6 to 10; Start 07/31/16 at 16:30 Heparin Sodium/ Dextrose (Heparin-D5W Inj) 250 ml @ 0 mls/hr TITRATE IV Last administered on 07/31/16t 16:53; Start 07/31/16 at 16:45 Heparin Sodium (Porcine) (Heparin Inj) 5,000 units UNSCH PRN IV aPTT less than 25; Start 07/31/16 at 16:45 Heparin Sodium (Porcine) (Heparin Inj) 2,500 units UNSCH PRN IV aPTT 25 to 39 Last administered on 08/01/16t 01:10; Start 07/31/16 at 16:45 Atorvastatin Calcium (Lipitor) 40 mg HS PO ; Start 07/31/16 at 21:00 Temazepam 7.5 mg 7.5 mg HS PRN PO INSOMNIA; Start 07/31/16 at 22:00 Sodium Chloride (NS 1000 ml Inj) 1,000 ml @ 100 mls/hr Q10H IV ; Start at 11:00; Stop 08/06/16 at 10:59 Aspirin (Aspirin) 325 mg TELEPHONE INFORMATION SUPERVISOR PO ; Start 08/01/16 at 11:30; Stop 08/05/16 at 11:29 Diphenhydramine HCl (Benadryl) 50 mg TELEPHONE INFORMATION SUPERVISOR PO ; Start 08/01/16 at 11:30; Stop 08/05/16 at 11:29 Diazepam (Valium) 10 mg TELEPHONE INFORMATION SUPERVISOR PO ; Start 08/01/16 at 11:30; Stop 08/05/16 at 11:29 A/P Problem List: (1) Chest pain ICD Code: R07.9 Status: Acute (2) Dysrhythmia, cardiac ICD Code: I49.9 Status: Acute Assessment and Plan This 66-year-old male patient with past medical history which includes hypertension and is no longer on medication after weight loss, borderline hyperlipidemia reports he does not take any medications. Patient reports she's been in his normal state of health which includes going to the gym regularly and an, "active lifestyle." Patient reports for the past 3 days he's been having chest pain after eating. Chest pain rule out acute coronary syndrome Initial troponin less than 0.02 and now 0.15 and trending down. Serial enzymes and serial EKGs Initial EKG reveals sinus rhythm rate 88 bpm with frequent PVCs and ST depression V4, V5 and V6 Chest x-ray reviewed and reveals normal exam On heparin drip and nitroglycerin drip. 2-D echocardiogram showed EF of 45-50%. Mild to moderate regurgitation. On aspirin. Nuclear stress test suggests inferior ischemia. Per earth mover recommend cart catheterization. Patient agreed. Patient will also need to be started on a statin. His LDL is 110. Patient is in agreement. Risks, benefits and side effects was reviewed the patient. We 'll need to check his LFTs and 4-6 weeks after being on medication. Dysrhythmia- sinus rhythm with frequent PVCs/ trigeminy Potassium 4.2, magnesium 2.3 History of hypertension not currently on medication Monitor blood pressure trend Acute kidney injury Most likely secondary to hypoperfusion due to acute coronary syndrome. Resolved. Avoid nephrotoxins DVT prophylaxis patient is currently on heparin drip Discharge Planning Patient is scheduled to have a cardiac catheterization today. Problem Qualifiers (1) Chest pain: Qualified Code: I20.0 - Unstable angina pectoris (2) Dysrhythmia, cardiac: Qualified Code: I49.8 - Other cardiac arrhythmia Soni Topete MD August 01, 2016 11:36
[2016-08-01] MEDS ORDERED: IOHEXOL 350 MG/ML 100 ML BTL (for Cath Lab) OTHER ONE (11:38)
[2016-08-01] MEDS ORDERED: VERAPAMIL HCL 5 MG/2 ML VIAL ONE (12:55)
[2016-08-01] MEDS ORDERED: HEPARIN SODIUM - IV 10,000 UNITS/10 ML VIAL ONE (12:55)
[2016-08-01] MEDS ORDERED: MIDAZOLAM HCL 2 MG/2 ML VIAL ONE ×3 (12:55→14:04)
[2016-08-01] MEDS ORDERED: TIROFIBAN INFUSION INJ 250 ML IV ONE (13:41)
[2016-08-01] MEDS ORDERED: TICAGRELOR 90 MG TAB PO ONE (14:10)
[2016-08-01] MEDS ORDERED: SODIUM CHLORIDE 0.9% FLUSH 5 ML FLUSH IVF PRN (14:30)
[2016-08-01] MEDS ORDERED: TEMAZEPAM 15 MG CAP PO PRN (14:30)
[2016-08-01] MEDS ORDERED: MISC INFORMATION XX ONE (14:30)
--- NOTE | 2016-08-01 14:30 | CATHPROC ---
[employer] HIS Report Study Information Study Number Admission Scheduled Start Study Start 1020-17 07/30/2016 08/01/2016 Aug 01 2016 12:21PM Referring Institution Admit Source Facility Department 1 Emergency department [facility] - Maintenance Mechanic Helper Physician and Clinical Staff Initial Titi Sewell Building Economistbenita Virgen RN, Casandra Mckeon RN/BA Recorder Cyndy Ramirez,RT(R) (BS) Scrub Aurora MaierRT(R) Procedures Performed Procedure Location (Site) Vessel Name Coronary Angiograms LCA Left Coronary Coronary Angiograms RCA Right Coronary Drug Eluting Inflatio OM1 Mid CIRC Drug Eluting Inflatio RCA Dist Right Coronary L Heart Cath PTCA OM1 Mid CIRC PTCA RCA Dist Right Coronary PTCA ADD ON'S Wire insertion Radial (right) Radial Art. Equipment Time Back Tender Cylinder Description Size Mfg Part Number Used/Scraped [id number] 13:34 [employer] WIRE, ASAHI PROWATER 180CM 180CM Used *[id number] WIRE, BALANCE MIDDLEWEIGHT [id number] 13:44 [employer] 190CM Used 190CM *[id number] *[id number] [id number] *[id number] *[id number] [id number] *[id number] 12:53 MALLINCKRODT SYRINGE, ANGIOMAT 150ML 150ML [id number] Used MEDICAL CONCEPT DRAPE, RADIAL FEMORAL FULL 12:53 * [id number] *[id number] Used DEVELOPMENT BODY [id number] 12:24 MED[employer] PACK, CCL CUSTOM * Used *[id number] 12:53 [employer] SUPPORT, ARTERIAL ADULT [id number] Used 12:53 [employer] PACER PEN, SKIN DUAL W/ RULER * [id number] Used BALLOON, 2.25 X 15MM [id number] 14:01 MEDTRONIC 15MM Used EUPHORA *[id number] 13:38 [employer] BALLOON, 3.0 X 6MM EUPHORA 6MM Used *[id number] STENT, 2.25 22 RESOLUTE [id number] 14:05 MEDTRONIC 2.25 22 Used INTEGRITY RX *[id number] STENT, 3.0 9 RESOLUTE [id number] 13:43 MEDTRONIC 3.0 9 Used INTEGRITY RX *[id number] 13:29 [employer] MEDICAL 30 CHRIS INDEFLATOR Used *[id number] BAND, RADIAL COMPRESSION TR [id number] 14:14 [employer] MEDICAL 24CM Used SHORT 24 *[id number] SHEATH, FR6 RADIAL PRELUDE 12:53 [employer] MEDICAL FR 6 [id number] Used EASE 11CM [id number] 12:24 [employer] MEDICAL SHEATH, FR6.5 PRELUDE 11CM FR 6.5 038ACT Used *[id number] 12:53 [employer] WIRE, EXCHANGE 260CM 3MMJ 260CM Used *[id number] 12:24 NAMIC MANIFOLD, 4 PORT * Used *[id number] 12:53 NAMIC MANIFOLD, 4 PORT * Used *[id number] 12:53 [employer]COMED OMNIPAQUE, 350 MG, 150ML 150ML [id number] Used [id number] 12:53 [employer] BLANKET,WARM AIR CCL * Used *[id number] 12:24 [employer] BLANKET,WARM AIR CCL * Used *[id number] CATHETER, FR5 OPTITORQUE [id number] 13:17 Tiny Post FR 5 Used RADIAL TIG 4.0 *[id number] Equipment Model, Serial, Lot Number and Expiration Data Description Model Number Serial Number Lot Number Expiration Date STENT, 2.25 22 RESOLUTE [id number] 02-04-2018 INTEGRITY RX STENT, 3.0 9 RESOLUTE [id number] 03-27-2018 INTEGRITY RX History: Current Medications Medication Dosage/Unit Route Frequency Last Date/Time Taken Statins (any) ASA VASOTEC History: Allergies Allergy Reaction No Known Allergies History: Risk Factors Family History of Hypertension Dyslipidemia Previous UT Previous Heart Failure Premature CAD Yes No Yes No No Prior Valve Prior PCI Prior CABG Surgery No No No Cerebrovascular Peripheral Artery Chronic Lung On Dialysis Diabetes Disease Disease Disease No No No No No History: Stress Tests Stress or Imaging Studies Performed Yes Standard Exercise Stress Test No Stress Echo No Stress Test SPECT Stress Test SPECT Result Stress Test SPECT Ischemia Risk/Extent Yes Positive Intermediate Stress Test CMR No Cardiac CTA Coronary Calcium Score No No Labs Hgb (g/dl) Hct (%) WBC (l/cumm) Platelets (thousands) 12.00-18.00 37.00-55.00 4.80-10.80 140.00-450.00 14.5 42.7 7.2 141 Glucose (mg/dl) BUN (mg/dl) Creatinine (mg/dl) BUN:Creatinine (1:x) 60.00-110.00 8.00-20.00 0.10-9.00 10.00-20.00 110 19 1.0 19 Na (meq/l) K (meq/l) 138.00-146.00 3.80-5.10 141 4 INR (PTT:PT) 0.50-2.00 1 Troponin I (ng/ml) CPK-MB (ng/ML) 0.40-2.30 0.00-7.00 0.1 Not Drawn Medication Medication Total Dose (Bolus/Oral) Medication Total Dosage/Unit 1% XYLOCAINE 1 mL AGGRASTAT BOLUS 58 mL BRILINTA 180 mg HEPARIN 7000 units NTG (IC) 400 mcg RADIAL COCKTAIL 1 mL (Bolus) VERSED 4 mg Medications (Bolus/Oral) Medication Time Given Dosage/Unit Administered By Reason VERSED 08/01/2016 1:23:52 PM 2 mg Rob Virgen RN 2 mg VERSED given in lab by Rob Virgen RN in Left Antecubital via Peripheral IV. 1% XYLOCAINE 08/01/2016 1:24:02 PM 1 mL Titi Menjivar 1 mL 1% XYLOCAINE given in lab by Titi Menjivar in Right Radial via Subcutaneous. Ntg 200mcg Verapamil 2.5mg Heparin RADIAL COCKTAIL 08/01/2016 1:25:03 PM 1 mL (Bolus) Titi Menjivar 2500U 5 mL (Bolus) RADIAL COCKTAIL given in lab by Titi Menjivar via Radial. Using [Solution Name]. Reason: Ntg 200mcg Heparin 2500U. AGGRASTAT BOLUS 08/01/2016 1:43:09 PM 58 mL Rob Virgen RN 58 mL AGGRASTAT BOLUS given in lab by Rob Virgen RN in Left Antecubital via Peripheral IV. NTG (IC) 08/01/2016 1:51:09 PM 150 mcg Titi Menjivar 150 mcg NTG (IC) given in lab by Titi Menjivar via Intra-coronary. NTG (IC) 08/01/2016 1:52:57 PM 100 mcg Titi Menjivar 100 mcg NTG (IC) given in lab by Titi Menjivar via Intra-coronary. NTG (IC) 08/01/2016 2:00:21 PM 150 mcg Titi Menjivar 150 mcg NTG (IC) given in lab by Titi Menjivar via Intra-coronary. VERSED 08/01/2016 2:04:20 PM 2 mg Rob Virgen RN 2 mg VERSED given in lab by Rob Virgen RN in Left Antecubital via Peripheral IV. BRILINTA 08/01/2016 2:14:45 PM 180 mg Casandra Bonds 180 mg BRILINTA given in lab by Casandra Bonds RN/BA via Oral. HEPARIN 08/01/2016 2:22:57 PM 7000 units Rob Virgen RN 7000 units HEPARIN given in lab by Rob Virgen RN in Left Antecubital via Peripheral IV. Medication (Drip) Medication Time Given Dosage/Unit Concentration/Unit Diluent (ml) Solution AGGRASTAT DRIP 08/01/2016 1:47:43 PM 0.147 mcg/kg/min 12.5 mg 250 NaCl .9 0.147 mcg/kg/min AGGRASTAT DRIP given in lab by Rob Virgen RN in Left Antecubital via Peripheral IV . Pump/Drip Flow = 21 ml/hr using NaCl .9 with a concentration of 12.5 mg in 250 ml. HEPARIN DRIP STOPPED 08/01/2016 12:40:30 PM 0 units/hr 0 Patient arrived on 0 units/hr HEPARIN DRIP STOPPED. Pump/Drip Flow = 0 ml/hr using [Solution Name]. IV Solutions 08/01/2016 12:43:07 PM 0 mL (IV) 1000 NaCl .9 Patient arrived on IV Solutions in Left Antecubital via Peripheral IV. Pump/Drip Flow = 20 ml/hr usin g NaCl .9. NITROGLYCERIN DRIP 08/01/2016 1:05:30 PM 3 mcg/min 50 mg 250 D5W Patient arrived on 3 mcg/min NITROGLYCERIN DRIP in Right Hand via Peripheral IV. Pump/Drip Flow = 0.9 ml/hr using D5W with a concentration of 50 mg in 250 ml. NITROGLYCERIN DRIP 08/01/2016 1:48:11 PM 20 mcg/min 50 mg 250 D5W 20 mcg/min NITROGLYCERIN DRIP given in lab by Rob Virgen RN in Right Hand via Peripheral IV. Pump/D rip Flow = 6 ml/hr using D5W with a concentration of 50 mg in 250 ml. Initial Case Assessment Cardiovascular HR Rhythm NIBP Chest Pain 60 reg 136/69 0 Edema Present Skin color Skin None Normal Warm Dry Circulatory - Right Pulses Dorsalis Pedis Posterior Tibial Femoral 2 2 2 Scale (0,1,2,3,4,d) Circulatory - Left Pulses Dorsalis Pedis Posterior Tibial Femoral 2 3 Scale (0,1,2,3,4,d) Circulatory - Lower Extremities Color Lower Right Color Lower Left Normal Normal Neurological State Oriented to time-place- Alert Moves all extremities person Respiration - General Respiration Rate SpO2 (%) O2 (lpm) (B/min) 12 96 2 Chronological Log Time Study Chronological Log 12:40:30 Patient arrived on 0 units/hr HEPARIN DRIP STOPPED. Pump/Drip Flow = 0 ml/hr using [Solut ion Name]. 12:42:50 Patient arrived via Bed. 12:42:51 Patient Name, D.O.B, / Armband Verified By R.N. 12:42:52 Consent signed by the physician and the patient and verified by the Maintenance Mechanic Helper staff. 12:42:53 Pre-op and post- op instructions given; patient acknowledges understanding of instructions. 12:42:54 Verbal Stimulation=2 Physical Stimulation=2 Airway=2 Respiration=2 TOTAL=8. (0=absent, 1=li mited, 2=present) 12:42:56 Presedation assessment performed by Maintenance Mechanic Helper RN. 12:42:59 Patient has been NPO for More than 6Hrs. 12:43:01 Skin Breakdown none per pt 12:43:02 Patient Warmer Placed on the Table. 12:43:06 A # 20 IV was noted in the Hand (right). Grade = 0 12:43:07 Patient arrived on IV Solutions in Left Antecubital via Peripheral IV. Pump/Drip Flow = 20 ml/hr using NaCl .9. 12:43:07 History and physical on the chart or being dictated. Assessment: Initial Case, HR=60 BPM, Rhythm=reg, FRZH=815/69 mmhg, Chest Pain=0, Edema=None, Co johnnie=Normal, Skin = Warm, Dry Right Pulses: Caden Ped=2, Post Tib=2, Femoral=2 Left Pulses: Caden Ped=2, Femoral=3 12:43:08 Lower Right Extremities: Color=Normal Lower Left Extremities: Color=Normal Neurological: State=Alert, Ox3, PIERSON Respiration: Resp=12 B/min, SpO2=96 %, O2=2 lpm Vitals capture started with the following parameters, Patient=Adult, Interval=5 min, Initial Pr xcuyxs=751 mmHg, 12:52:42 Deflation Rate=5 mmHg 12:53:56 HR=58 bpm, ZUCF=214/69 mmhg, Resp=0 B/min, Pain=0, Nguyen=10, Lobo=2 12:54:47 A # 20 IV was noted in the Hand (right). Grade = 0 12:54:48 A # 20 IV was noted in the Antecubital (left). Grade = 0 12:58:23 HR=52 bpm, HLFD=263/78 mmhg, SpO2=98.0 %, Resp=0 B/min, Pain=0, Nguyen=10, Lobo=2 13:03:22 HR=52 bpm, ZMLD=328/78 mmhg, TrR8=161.0 %, Resp=13 B/min, Pain=0, Nguyen=10, Lobo=2 Patient arrived on 3 mcg/min NITROGLYCERIN DRIP in Right Hand via Peripheral IV. Pump/Drip Flow = 0.9 ml/hr using 13:05:30 D5W with a concentration of 50 mg in 250 ml. 13:06:39 Right Radial and groin(s) prepped with 2% chlorhexidine, and with a 3 min. waiting time. 13:07:45 Reference ECG taken 13:08:23 HR=53 bpm, RDAQ=917/83 mmhg, TeH4=365.0 %, Resp=24 B/min, Pain=0, Nguyen=10, Lobo=2 13:11:11 MD paged 13:12:38 Pressure channel 1 zeroed. 13:13:26 HR=50 bpm, DCOX=458/75 mmhg, SpO2=99.0 %, Resp=13 B/min, Pain=0, Nguyen=10, Lobo=2 13:15:35 MD responded 13:18:27 HR=49 bpm, GWYW=787/74 mmhg, OyI3=076.0 %, Resp=12 B/min, Pain=0, Nguyen=10, Lobo=2 13:19:49 MD arrived 13:23:26 HR=57 bpm, XNKM=530/77 mmhg, SpO2=99.0 %, Resp=15 B/min, Pain=0, Nguyen=10, Lobo=2 Time Out. Correct patient, correct procedure,correct physician, power injector loaded with dipti rast with surgical team 13:23:32 present. Time Out Concurred by MD, individual staff in procedure 13:23:47 Case Start 13:23:52 2 mg VERSED given in lab by Rob Virgen RN in Left Antecubital via Peripheral IV. 13:24:02 1 mL 1% XYLOCAINE given in lab by Titi Menjivar in Right Radial via Subcutaneous. 13:24:12 Access site was right Radial Artery. A SHEATH, FR6 RADIAL PRELUDE EASE 11CM FR 6 was advanced into the Radial (right) using the Perc utaneous 13:24:27 technique. 5 mL (Bolus) RADIAL COCKTAIL given in lab by Titi Menjivar via Radial. Using [Solution Name]. Re ason: Ntg 200mcg 13:25:03 Heparin 2500U. A CATHETER, FR5 OPTITORQUE RADIAL TIG 4.0 FR 5 was advanced over a wire. OMNIPAQUE, 350 MG, 150 ML 150ML 13:25:37 was used for injections. 13:26:50 The LCA was injected and visualized at various angles. OMNIPAQUE, 350 MG, 150ML 150ML used . 13:28:25 HR=53 bpm, HXBM=422/76 mmhg, SpO2=99.0 %, Resp=12 B/min, Pain=0, Nguyen=10, Lobo=2 13:28:46 The RCA was injected and visualized at various angles. OMNIPAQUE, 350 MG, 150ML 150ML used . 13:28:58 OMNIPAQUE, 350 MG, 150ML 150ML and 30 CHRIS INDEFLATOR added. After removing the current catheter a HS SH GUIDE CATHETER FR 6 was advanced over a WIRE, EXCHA NGE 260CM 13:29:24 3MMJ 260CM. 13:31:17 Activated Clotting Time Drawn 13:33:26 HR=70 bpm, BXPE=435/82 mmhg, SpO2=95.0 %, Resp=13 B/min, Pain=0, Nguyen=10, Lobo=2 13:34:25 A WIRE, emazeWATER 180CM 180CM was inserted via Radial (right). 13:35:45 Interventional wire has crossed the lesion A BALLOON, 3.0 X 6MM EUPHORA 6MM was inserted over WIRE, ASAHI PROWATER 180CM 180CM via the Rai d 13:36:43 (right). 13:37:13 ACT (Normal Range 90-180) = 322 A BALLOON, 3.0 X 6MM EUPHORA 6MM over a WIRE, ASAHI PROWATER 180CM 180CM in the RCA Dist was in flated 13:38:02 using a 30 CHRIS INDEFLATOR at 13 chris for 36 sec. A BALLOON, 3.0 X 6MM EUPHORA 6MM over a WIRE, ASAHI PROWATER 180CM 180CM in the RCA Dist was in flated 13:38:57 using a 30 CHRIS INDEFLATOR at 14 chris for 30 sec. 13:39:08 HR=65 bpm, MJUS=457/91 mmhg, KwF0=872.0 %, Resp=13 B/min, Pain=0, Nguyen=10, Lobo=2 13:40:50 Balloon Removed A STENT, 3.0 9 RESOLUTE INTEGRITY RX 3.0 9 was advanced through a HS SH GUIDE CATHETER FR 6 ove r a WIRE, 13:42:18 ASAHI PROWATER 180CM 180CM. 13:43:09 58 mL AGGRASTAT BOLUS given in lab by Rob Virgen RN in Left Antecubital via Peripheral IV . 13:43:38 Stent not deployed. Stent removed and intact. 13:44:17 HR=53 bpm, MIMS=285/101 mmhg, ZlH5=849.0 %, Resp=7 B/min, Pain=0, Nguyen=10, Lobo=2 13:45:10 A WIRE, BALANCE MIDDLEWEIGHT 190CM 190CM was inserted via Radial (right). A STENT, 3.0 9 RESOLUTE INTEGRITY RX 3.0 9 was advanced through a HS SH GUIDE CATHETER FR 6 ove r a WIRE, 13:47:20 BALANCE MIDDLEWEIGHT 190CM 190CM. 0.147 mcg/kg/min AGGRASTAT DRIP given in lab by Rob Virgen RN in Left Antecubital via Periphe ral IV. Pump/Drip 13:47:43 Flow = 21 ml/hr using NaCl .9 with a concentration of 12.5 mg in 250 ml. 20 mcg/min NITROGLYCERIN DRIP given in lab by Rob Virgen RN in Right Hand via Peripheral IV. Pump/Drip Flow = 6 13:48:11 ml/hr using D5W with a concentration of 50 mg in 250 ml. 13:48:27 HR=64 bpm, XPMG=015/128 mmhg, MtP7=204.0 %, Resp=10 B/min, Pain=0, Nguyen=10, Lobo=2 13:50:35 Wire removed prowater 13:51:09 150 mcg NTG (IC) given in lab by Titi Menjivar via Intra-coronary. A STENT, 3.0 9 RESOLUTE INTEGRITY RX 3.0 9 was deployed using a 30 CHRIS INDEFLATOR at 15 atmosph eres for 35 13:51:51 seconds in the RCA Dist. 13:52:52 Delivery device removed 13:52:57 100 mcg NTG (IC) given in lab by Titi Menjivar via Intra-coronary. 13:54:04 Wire removed 13:54:15 HR=82 bpm, MQEL=682/90 mmhg, SpO2=97.0 %, Resp=7 B/min, Pain=0, Nguyen=10, Lobo=2 After removing the current catheter a XB 3.5 GUIDE CATHETER FR 6 was advanced over a WIRE, EXCH CARLOS 260CM 13:55:44 3MMJ 260CM. 13:58:33 A WIRE, BALANCE MIDDLEWEIGHT 190CM 190CM was inserted via Radial (right). 13:59:12 HR=71 bpm, EQQF=536/97 mmhg, SpO2=97.0 %, Resp=11 B/min, Pain=0, Nguyen=10, Lobo=2 14:00:21 150 mcg NTG (IC) given in lab by Titi Menjivar via Intra-coronary. A BALLOON, 2.25 X 15MM EUPHORA 15MM was inserted over WIRE, BALANCE MIDDLEWEIGHT 190CM 190CM vi a the 14:00:54 Radial (right). A BALLOON, 2.25 X 15MM EUPHORA 15MM over a WIRE, BALANCE MIDDLEWEIGHT 190CM 190CM in the OM1 Mi d was 14:02:02 inflated using a 30 CHRIS INDEFLATOR at 12 chris for 28 sec. A BALLOON, 2.25 X 15MM EUPHORA 15MM over a WIRE, BALANCE MIDDLEWEIGHT 190CM 190CM in the OM1 Mi d was 14:02:49 inflated using a 30 CHRIS INDEFLATOR at 13 chris for 20 sec. A BALLOON, 2.25 X 15MM EUPHORA 15MM over a WIRE, BALANCE MIDDLEWEIGHT 190CM 190CM in the OM1 Mi d was 14:03:21 inflated using a 30 CHRSI INDEFLATOR at 13 chris for 25 sec. 14:03:37 HR=74 bpm, XLPH=481/93 mmhg, SpO2=98.0 %, Resp=11 B/min, Pain=0, Nguyen=10, Lobo=2 14:03:56 Balloon Removed 14:04:20 2 mg VERSED given in lab by Rob Virgen RN in Left Antecubital via Peripheral IV. A STENT, 2.25 22 RESOLUTE INTEGRITY RX 2.25 22 was advanced through a XB 3.5 GUIDE CATHETER FR 6 over a 14:05:57 WIRE, BALANCE MIDDLEWEIGHT 190CM 190CM. A STENT, 2.25 22 RESOLUTE INTEGRITY RX 2.25 22 was deployed using a 30 CHRIS INDEFLATOR at 14 chris ospheres 14:06:59 for 40 seconds in the OM1 Mid. 14:07:46 Delivery device removed 14:08:27 HR=63 bpm, MZQL=094/115 mmhg, SpO2=98.0 %, Resp=9 B/min, Pain=0, Nguyen=10, Lobo=2 14:08:58 Wire removed After removing the current catheter a MPA-2 INFINITI CATHETER FR 6 was advanced over a WIRE, EX CHANGE 260CM 14:09:12 3MMJ 260CM. 14:09:37 Catheter was removed 14:09:48 Case End 14:13:26 Activated Clotting Time Drawn 14:14:07 HR=68 bpm, FKDK=043/107 mmhg, SpO2=99.0 %, Resp=15 B/min, Pain=0, Nguyen=10, Lobo=2 14:14:33 Catheter(s) removed without difficulty Radial Compression Device Used. 18 mLs of air placed in BAND, RADIAL COMPRESSION TR SHORT 24 24 CM. Affected 14:14:36 hand 100 % O2 saturation. 14:14:45 180 mg BRILINTA given in lab by Casandra Bonds RN/BA via Oral. 14:15:26 No case complications noted. 14:15:37 Cine recording checked. 14:15:41 Bedside Report will be given. 14:15:42 Implantable Device card placed in patient's chart. 14:15:52 Contrast Scanned 14:15:55 A Left Heart Cath was performed. 14:16:01 [facility] called. Spoke to Namrata. 14:16:20 ACT (Normal Range 90-180) = 194 14:18:40 HR=61 bpm, CKGE=666/100 mmhg, SpO2=99.0 %, Resp=11 B/min, Pain=0, Nguyen=10, Lobo=2 14:22:57 7000 units HEPARIN given in lab by Rob Virgen RN in Left Antecubital via Peripheral IV. 14:24:26 HR=61 bpm, QVBY=951/96 mmhg, SpO2=99.0 %, Resp=6 B/min, Pain=0, Nguyen=10, Lobo=2 14:25:24 Vitals capture stopped. 14:26:47 Patient moved to [facility] End Study - Contrast Media Used In Study Contrast Total Opened (mL) Total Used (mL) Total Wasted (mL) Omnipaque 175 175 0 End Study - Maximum Contrast Load Max Contrast Load (mL) 595.0 End Study - Radiation Exposure Fluoro Time (minutes) 15.5 End Study - Sheaths Sheaths Pulled By Sheath Hold Time (min) Aurora Maier End Study - Patient Disposition Complications Transferred To Interventional Outcome No Telemetry Bed successful
--- NOTE | 2016-08-01 15:24 | EKG ---
Date Performed: 07/31/2016 Time Performed: 11:21:04 PTAGE: 66 years EKG: Sinus bradycardia Extensive ST-T changes are nonspecific When compared to previous tracing, premature ventricular Contractions are no longer present, otherwise no significant Change. Borderlin e ECG PREVIOUS TRACING : 07/30/2016 22.27.04 DOCTOR: Matt Fan Interpretating Date/Time 08/01/2016 15:23:38
[2016-08-01] MEDS: TIROFIBAN INFUSION INJ 250 ML IV SCH (15:46)
--- NOTE | 2016-08-01 15:50 | MA ---
cc: FLORENTIN BARBOSA M.D. DATE 08/01/2016 PROCEDURE Left heart catheterization, selective coronary angiography, angioplasty and stent of the distal right coronary artery, angioplasty and stent of the mid obtuse marginal. PROCEDURE NOTE The patient was brought to the cardiac catheterization laboratory in fasting state after having signed informed consent. The right radial region was prepped and draped as per policy and anesthetized with 1% lidocaine. Arterial access was obtained via the right radial artery and a 6-English sheath placed. Coronary arteriography was performed using a [place] catheter. Percutaneous coronary intervention was done as described below. There were no apparent immediate complications. HEMODYNAMIC RESULTS Aorta 182/107. The aortic valve was crossed briefly with the [place] catheter demonstrating no significant transvalvular aortic gradient. CORONARY ARTERIOGRAPHY The left main is mildly calcified. There is up to 20% somewhat eccentric distal stenosis. The left anterior descending is diffusely diseased from its proximal to midportion. There is likely up to 40% proximal LAD disease and 25% mid LAD system disease. The LAD gives rise to a tiny first diagonal which has 80% ostial stenosis and a tiny second diagonal which overall has mild diffuse disease. The left circumflex is a relatively small vessel giving rise to a medium-sized obtuse marginal. The obtuse marginal has diffuse mid disease which results in up to 60-70% stenosis. This obtuse marginal appears to supply a portion of the inferoapical wall. The proximal left circumflex has up to 30% stenosis. The right coronary artery is a fairly large dominant vessel which is also diffusely diseased. There is up to 20% proximal stenosis and 25% mid disease. In the distal vessel, right before the takeoff of the posterior descending artery, there is 90% stenosis. The posterior descending artery is tortuous and has 20% proximal stenosis. LEFT VENTRICULOGRAPHY Not done. PRECAUTIONS CORONARY INTERVENTION DESCRIPTION Aggrastat was given as per protocol. Adequate heparin was given during the procedure to achieve an ACT greater than 250 seconds. Using a 6-English hockey-stick guiding catheter with side holes the ostium of the right coronary artery was re-engaged. Using a 0.014 Prowater guidewire the distal stenosis was crossed without difficulty and the tip of the wire positioned distally. Predilation was done using a 3.0 mm Euphora balloon catheter. We attempted to advance a 3.0-mm Resolute stent. It would not traverse a calcified portion of the midvessel. A balanced middle weight guidewire was advanced alongside the Prowater. Over the balanced middle weight guidewire the stent was advanced to the distal lesion and deployed at approximately 13-14 atmospheres for 35 seconds. The stent is a 3.0 x 9 mm Resolute. Final angiography of the distal right coronary artery shows reduction of the initial stenosis to roughly 0% residual with no definite evidence for dissection or distal embolization. The guiding catheter was exchanged for a 6-English XB 3.5. This was used to re-engage the left main. Using a 0.014 balanced middle weight guidewire the disease in the obtuse marginal was crossed without difficulty and the tip of the wire positioned distally. Predilation was done using a 2.25 mm Euphora balloon catheter. Stenting was done using a 2.25 x 22 mm Resolute stent which was deployed at 13 atmospheres for 40 seconds. Final angiography shows overall good results with reduction of the diffuse disease to roughly 0-10% residual with no definite evidence for dissection or distal embolization. The patient tolerated the procedures well. He did develop severe chest pains with balloon inflations relieved by balloon deflations as well as multiple administrations of intracoronary nitroglycerin. CONCLUSION 1. Moderate to severe three-vessel coronary artery disease. 2. Right dominant system. 3. Status post angioplasty and stent of the distal right coronary artery and angioplasty and stent of the mid obtuse marginal. MD MINDI Gruber/KK /2:17 PM /3:37 PM ANTONIA
[2016-08-01 16:24] LABS: APTT (PATIENT) 101.8 SEC (24.3-30.1)
[2016-08-01] MEDS ORDERED: MORPHINE SULFATE 4 MG/ML INJ IV PUSH ONE (19:00)
[2016-08-01] MEDS: ATORVASTATIN 40 MG TAB PO SCH (21:10)
[2016-08-01] MEDS: TICAGRELOR 90 MG TAB PO SCH (21:10)
[2016-08-02] VITALS (12 sets, daily range): BP systolic 121–129; BP diastolic 66–75; PULSE 46–72; RESP 16–18; TEMP 97–98.9; O2SAT 95–97
[2016-08-02] MEDS: SODIUM CHLOR 0.9% 1000 ML INJ 1,000 ML IV SCH ×5 (00:23→09:04)
[2016-08-02] MEDS: TIROFIBAN INFUSION INJ 250 ML IV SCH (02:04)
[2016-08-02 05:00] LABS: BICARBONATE 28.2 MEQ/L (21.0-32.0)
[2016-08-02 05:02] LABS: HDL CHOLESTEROL 31.5 MG/DL (40.0-60.0)
[2016-08-02 05:52] LABS: AUTOMATED NEUTROPHIL # 7.1 TH/MM3 (1.8-7.7); BASOPHIL % 0.3 % (0.0-2.0); EOSINOPHIL # 0.2 TH/MM3 (0-0.4); EOSINOPHIL % 1.9 % (0.0-4.0); HEMATOCRIT 43.4 % (39.0-51.0); HEMO FLAGS DIFF FINAL; LYMPH % 14.9 % (9.0-44.0); LYMPHOCYTE # 1.4 TH/MM3 (1.0-4.8); MEAN CORPUSCULAR HEMOGLOBIN 29.3 PG (27.0-34.0); MEAN CORPUSCULAR HGB CONC 33.7 % (32.0-36.0); MONO % 8.5 % (0.0-8.0); NEUT % 74.4 % (16.0-70.0); PLATELET COUNT 172 TH/MM3 (150-450); RED BLOOD COUNT 4.99 MIL/MM3 (4.50-5.90); RED CELL DISTRIBUTION WIDTH 13.9 % (11.6-17.2); WHITE BLOOD COUNT 9.5 TH/MM3 (4.0-11.0)
[2016-08-02] MEDS: SODIUM CHLORIDE 0.9% FLUSH 10 ML FLUSH IV FLUSH SCH (08:59)
[2016-08-02] MEDS: TICAGRELOR 90 MG TAB PO SCH (09:00)
[2016-08-02] MEDS: ENALAPRIL MALEATE 5 MG TAB PO SCH (09:00)
[2016-08-02] MEDS ORDERED: ASPIRIN 81 MG CHEW TAB PO SCH (09:00)
[2016-08-02] MEDS: ASPIRIN EC 81 MG TABEC PO SCH (09:00)
[2016-08-02] MEDS: DOCUSATE SODIUM 50 MG/SENNA 8.6 MG TAB PO SCH (09:01)
[2016-08-02] MEDS ORDERED: BRIL90TA PO (09:30)
[2016-08-02] MEDS ORDERED: ENAL5TAB PO (09:30)
[2016-08-02] MEDS ORDERED: ATOR40TA16 PO (09:30)
--- NOTE | 2016-08-02 09:30 | HHI.DCPOC ---
Discharge Care Plan Diagnosis: (1) NSTEMI (non-ST elevated myocardial infarction) (2) Hyperlipidemia (3) Hypertension Goals to Promote Your Health * To prevent worsening of your condition and complications * To maintain your health at the optimal level Directions to Meet Your Goals Take your medications as prescribed Follow your dietary instruction Follow activity as directed Keep your appointments as scheduled Take your immunizations and boosters as scheduled If your symptoms worsen call your PCP, if no PCP go to Urgent Care Center or Emergency Room Smoking is Dangerous to Your Health. Avoid second hand smoke Call the 24-hour hour crisis hotline for domestic abuse at Soni Topete MD August 02, 2016 09:30
--- NOTE | 2016-08-02 09:30 | HHI.DS ---
Discharge Summary Admission Date July 30, 2016 at 23:19 Discharge Date: August 02, 2016 Admitting Diagnosis ACUTE CORONARY SYDROME (1) NSTEMI (non-ST elevated myocardial infarction) ICD Code: I21.4 Diagnosis: Principal (2) CAD (coronary artery disease) ICD Code: I25.10 Diagnosis: Principal (3) Hyperlipidemia ICD Code: E78.5 Diagnosis: Secondary (4) Hypertension ICD Code: I10 Diagnosis: Secondary Procedures Cardiac catheterization with stents placement Brief History - From Admission This 66-year-old male patient with past medical history which includes hypertension is no longer on medication after weight loss, borderline hyperlipidemia reports he does not take any medications for his cholesterol just watches his diet. Patient reports he's been in his normal state of health which includes going to the gym regularly and an, "active lifestyle." Patient reports for the past 3 days he's been having chest pain after eating. Chest pain offers only after meals and typically lasts 30 minutes then resolve spontaneously. Patient reports chest pain started this evening after dinner and did not resolve so he proceeded to the emergency department for further evaluation and treatment. Patient describes the chest pain as a pressure sensation located in midsternal area 7 out of 10 at its maximum with no radiation. Chest pain did have associated shortness of breath and diaphoresis. Chest pain is not affected by activity. This evening chest pain resolved after sublingual nitroglycerin. Patient is currently on heparin as well as nitroglycerin drip and reports he has no chest pain. EKG reviewed and reveals sinus rhythm rate 88 bpm with frequent PVCs and ST depression V4, V5 and V6. Patient also reports that he was told approximately one month ago by his shoe sticks repairer that he had an irregular heartbeat at that point stopped drinking coffee and feels as though his heart rate regulated. Patient reports he did have coffee approximately 8 PM this evening. Patient denies recent travel, lower extremity edema, calf pain, fevers, chills, nausea, vomiting, diarrhea, constipation, changes in weight, abdominal pain or changes in appetite. Patient also denies any history of GERD. CBC/BMP: 08/02/16 05 08/02/16 0411 Significant Findings Laboratory Tests Test 07/30/16 07/31/16 07/31/16 07/31/16 22:15 03:43 11:12 12:12 Monocytes (%) (Auto) 10.1 % 8.3 % (0.0-8.0) (0.0-8.0) Blood Urea Nitrogen 20 MG/DL (7-18) 19 MG/DL (7-18) Creatinine 1.60 MG/DL (0.60-1.30) Estimat Glomerular Filtration 43 ML/MIN (>89) 76 ML/MIN (>89) Rate Random Glucose 126 MG/DL 110 MG/DL (74-106) (74-106) Troponin I LESS THAN 0.02 0.15 NG/ML 0.10 NG/ML NG/ML (0.02-0.05) (0.02-0.05) (0.02-0.05) B-Type Natriuretic Peptide 240 PG/ML (0-100) Activated Partial 93.7 SEC Thromboplast Time (24.3-30.1) Platelet Count 141 TH/MM3 (150-450) Neutrophils (%) (Auto) 77.0 % (16.0-70.0) Calcium Level 8.2 MG/DL (8.5-10.1) Total Protein 6.1 GM/DL (6.4-8.2) LDL Cholesterol 110 MG/DL (0-99) HDL Cholesterol 33.6 MG/DL (40.0-60.0) Test 07/31/16 08/01/16 08/01/16 08/02/16 23:38 07:55 15:38 04:11 Activated Partial 36.3 SEC 57.7 SEC 101.8 SEC Thromboplast Time (24.3-30.1) (24.3-30.1) (24.3-30.1) Estimat Glomerular Filtration 82 ML/MIN (>89) Rate Calcium Level 8.2 MG/DL (8.5-10.1) Total Creatine Kinase 37 U/L (39-308) LDL Cholesterol 104 MG/DL (0-99) HDL Cholesterol 31.5 MG/DL (40.0-60.0) Test 08/02/16 05:24 Neutrophils (%) (Auto) 74.4 % (16.0-70.0) Monocytes (%) (Auto) 8.5 % (0.0-8.0) Imaging Last Impressions Myocardial Perfusion Scan Nuc Med 07/31/16 0000 Signed Impressions: Service Date/Time: Sunday, July 31, 2016 13:54 - CONCLUSION: Redistribution inferior wall at stress felt to be clinically significant.. RISK CATEGORY: Intermediate (1-3%% Annual Mortality Rate) Mathew Cardenas MD FACR Chest X-Ray 07/30/16 2219 Signed Impressions: Service Date/Time: Saturday, July 30, 2016 22:33 - CONCLUSION: Normal examination. Cristhian Bates Jr., MD PE at Discharge GENERAL: In no acute distress CARDIOVASCULAR: Regular rate and rhythm without murmurs, gallops, or rubs. RESPIRATORY: Breath sounds equal bilaterally. No accessory muscle use. GASTROINTESTINAL: Abdomen soft, non-tender, nondistended. MUSCULOSKELETAL: No cyanosis, or edema. wound on wrist dry clean and intact BACK: Nontender without obvious deformity. No CVA tenderness. Pt update on day of discharge Follow-up for chest pain Patient stated that he has no chest pain, shortness of breathing, palpitation, leg and his dizziness. Patient stated that he is very anxious to go home. He has no other complaints. No acute events over telemetry or since patient was last seen. Hospital Course This 66-year-old male patient with past medical history which includes hypertension and is no longer on medication after weight loss, borderline hyperlipidemia reports he does not take any medications. Patient reports she's been in his normal state of health which includes going to the gym regularly and an, "active lifestyle." Patient reports for the past 3 days he's been having chest pain after eating. Chest pain rule out acute coronary syndrome Initial troponin less than 0.02 and now 0.15 and trending down. Serial enzymes and serial EKGs Initial EKG reveals sinus rhythm rate 88 bpm with frequent PVCs and ST depression V4, V5 and V6 Chest x-ray reviewed and reveals normal exam He was put On heparin drip and nitroglycerin drip. 2-D echocardiogram showed EF of 45-50%. Mild to moderate regurgitation. On aspirin. Nuclear stress test suggests inferior ischemia. Per land planner recommend cart catheterization. Patient agreed. Patient will also need to be started on a statin. His LDL is 110. Patient is in agreement. Risks, benefits and side effects was reviewed the patient. We 'll need to check his LFTs and 4-6 weeks after being on medication. Status post cardiac catheterization on 08/01/[address] Menjiavr Moderate to severe three-vessel coronary artery disease, Status post angioplasty and stent of the distal right coronary artery and angioplasty and stent of the mid obtuse marginal. Dysrhythmia- sinus rhythm with frequent PVCs/ trigeminy Due to hyperkalemia that was replenished. Acute kidney injury Most likely secondary to hypoperfusion due to acute coronary syndrome. Resolved the next day after giving IV fluids.. Avoid nephrotoxins Pt Condition on Discharge: Good Discharge Disposition: Discharge Home Discharge Time: <= 30 minutes Discharge Instructions DIET: Follow Instructions for: Heart Healthy Diet Activities you can perform: See Additionl Instruction Other Activity Instructions: as instructed by land planner. Follow up Referrals: Cardiology - 2 Weeks with Titi Menjivar MD PCP Follow-up - 1 Week New Medications: Atorvastatin (Atorvastatin) 40 Mg Tab 40 MG PO HS CAD #30 Ref 0 TAB Enalapril (Enalapril) 5 Mg Tab 5 MG PO BID CAD #60 Ref 0 TAB Ticagrelor (Brilinta) 90 Mg Tab 90 MG PO BID stent #60 Ref 0 TAB Continued Medications: Ascorbic Acid (Vitamin C) 250 Mg Tab 250 MG PO DAILY Nutritional Supplement Ref 0 TAB Aspirin (Aspirin Low Dose) 81 Mg Chew 81 MG CHEW DAILY Ref 0 TAB Cholecalciferol (Vitamin D) 1,000 Unit Tab 1000 UNITS PO DAILY Nutritional Supplement #1 Ref 0 BOTTLE Cyanocobalamin (Vitamin B-12) 1,000 Mcg Tab 1000 MCG PO DAILY Nutritional Supplement #1 Ref 0 BOTTLE Fish Oil-Cholecalciferol (Fish Oil + D3) 1,200-1,000 Mg-Unit Cap 1 CAP PO DAILY Nutritional Supplement #30 Ref 0 CAP Multiple Vitamin (Multiple Vitamin) 1 Tab 1 TAB PO DAILY Nutritional Supplement Ref 0 TAB Vitamin E (Vitamin E) 200 Unit Cap 200 UNITS PO DAILY Nutritional Supplement Ref 0 CAP Soni Topete MD August 02, 2016 09:30
--- NOTE | 2016-08-02 10:05 | PD.CARD.PN ---
Subjective Subjective Remarks No CP, dyspnea, dizziness, palpitations, wrist pain. Objective Medications Item Value Date Time Aspirin 81 mg 08/02/16 0900 (Aspirin Chew) DAILY/PO Ticagrelor 90 mg 08/01/162099 (Brilinta) BID/PO 08/02/16 0900 Enalapril Maleate 5 mg 07/31/162099 (Vasotec) BID/PO 08/02/16 0900 Atorvastatin 40 mg 07/31/162099 Calcium HS/PO 08/01/162109 (Lipitor) Aspirin 81 mg 07/31/16 0900 (Ecotrin Ec) DAILY/PO 08/02/16 0900 Vital Signs / I&O Vital Signs Date Time Temp Pulse Resp B/P Pulse Ox O2 Delivery O2 Flow Rate FiO2 08/02/16 06:00 58 08/02/16 05:00 64 08/02/16 04:00 62 08/02/16 03:00 71 08/02/16 03:00 98.9 62 16 121/66 95 08/02/16 02:00 72 08/02/16 01:00 70 08/02/16 00:00 70 08/01/16 23:00 65 08/01/16 23:00 98.1 45 16 151/87 97 08/01/16 22:00 62 08/01/16 21:00 64 08/01/16 20:00 58 08/01/16 19:00 58 08/01/16 19:00 97.8 48 16 146/87 99 08/01/16 18:07 65 08/01/16 17:00 68 08/01/16 16:00 50 08/01/16 15:00 60 08/01/16 15:00 97.6 60 20 161/57 98 08/01/16 14:30 60 08/01/16 12:00 50 08/01/16 11:00 97.8 51 20 138/82 08/01/16 11:00 51 08/01/16 10:08 54 I/O 08/01/16 08/01/16 08/01/16 08/02/16 08/02/16 08/02/16 07:00 15:00 23:00 07:00 15:00 23:00 Intake Total 1500 ml 1320 ml 1462 ml Output Total 1125 ml 1800 ml 1050 ml Balance 375 ml -480 ml 412 ml Intake Oral 240 ml 420 ml 240 ml IV Total 1260 ml 900 ml 1222 ml Output Urine Total 1125 ml 1800 ml 1050 ml # Bowel Movements 0 Physical Exam GENERAL: Well developed, well nourished. No acute distress. HEENT: Jugular venous pressure is normal. CHEST: Lungs clear to auscultation bilaterally. Unlabored respiratory effort. CARDIAC: Regular rate and rhythm without S3, S4, or murmur. ABDOMEN: Soft, nontender, no hepatosplenomegaly. Bowel sounds present. EXTREMITIES: No clubbing, cyanosis, or edema. Right radial region stable, no hematoma, normal pulse. Laboratory Laboratory Tests Test 08/01/16 08/02/16 08/02/16 15:38 04:11 05:24 Activated Partial 101.8 SEC Thromboplast Time Sodium Level 138 MEQ/L Potassium Level 4.0 MEQ/L Chloride Level 102 MEQ/L Carbon Dioxide Level 28.2 MEQ/L Anion Gap 8 MEQ/L Blood Urea Nitrogen 12 MG/DL Creatinine 0.92 MG/DL Estimat Glomerular Filtration 82 ML/MIN Rate Random Glucose 103 MG/DL Calcium Level 8.2 MG/DL Total Creatine Kinase 37 U/L Triglycerides Level 129 MG/DL Cholesterol Level 161 MG/DL LDL Cholesterol 104 MG/DL HDL Cholesterol 31.5 MG/DL Cholesterol/HDL Ratio 5.11 RATIO White Blood Count 9.5 TH/MM3 Red Blood Count 4.99 MIL/MM3 Hemoglobin 14.6 GM/DL Hematocrit 43.4 % Mean Corpuscular Volume 87.0 FL Mean Corpuscular Hemoglobin 29.3 PG Mean Corpuscular Hemoglobin 33.7 % Concent Red Cell Distribution Width 13.9 % Platelet Count 172 TH/MM3 Mean Platelet Volume 8.2 FL Neutrophils (%) (Auto) 74.4 % Lymphocytes (%) (Auto) 14.9 % Monocytes (%) (Auto) 8.5 % Eosinophils (%) (Auto) 1.9 % Basophils (%) (Auto) 0.3 % Neutrophils # (Auto) 7.1 TH/MM3 Lymphocytes # (Auto) 1.4 TH/MM3 Monocytes # (Auto) 0.8 TH/MM3 Eosinophils # (Auto) 0.2 TH/MM3 Basophils # (Auto) 0.0 TH/MM3 CBC Comment DIFF FINAL Differential Comment Assessment and Plan Problem List: (1) CAD (coronary artery disease) Assessment and Plan: Stable overnight. No further CP. Right radial arteriotomy site OK. AM labs OK. OK to discharge today on current medications , 3 week f/u with me, low level activity for a week. Continue Brilinta, aspirin. No beta jamar for now with relatively low HR's. (2) Dilated cardiomyopathy Assessment and Plan: Technically difficult echo though it does seem LV function mildly reduced, EF around 40-45%. No definite segmental wall motion abnormalities. No CHF evident. REC continue JAI-I, no beta jamar with relatively low HR's, recheck echo in 3 months or so (3) Hypertension Assessment and Plan: Normotensive at present. Cont to monitor. (4) Hyperlipidemia Assessment and Plan: Overall suboptimal lipid profile. Rec cont statin. Code Status full code Discussed Condition With patient Problem Qualifiers (1) CAD (coronary artery disease): Qualified Code: I25.110 - Coronary artery disease involving [place] coronary artery of [place] heart with unstable angina pectoris (2) Hypertension: Qualified Code: I10 - Essential hypertension (3) Hyperlipidemia: Qualified Code: E78.2 - Mixed hyperlipidemia Titi Menjivar MD August 02, 2016 10:04
== END 2016-08-02 11:39 | disposition home or self-care (01) | DRG 247 ==
LOC: PHED 22:06 → PHEDA 23:19 → HCIS 07-31 02:31
PROVIDERS: ADMIT Family Medicine; ATTEND Family Medicine
PROC: 027135Z Dilation of Coronary Artery, Two Arteries with Two Drug-eluting Intraluminal Devices, Percutaneous Approach (ICD-10-PCS; principal; 2016-08-01)
PROC: 4A023N7 Measurement of Cardiac Sampling and Pressure, Left Heart, Percutaneous Approach (ICD-10-PCS; 2016-08-01)
PROC: B2111ZZ Fluoroscopy of Multiple Coronary Arteries using Low Osmolar Contrast (ICD-10-PCS; 2016-08-01)
PROC: B2151ZZ Fluoroscopy of Left Heart using Low Osmolar Contrast (ICD-10-PCS; 2016-08-01)
DX: I21.4 Non-ST elevation (NSTEMI) myocardial infarction (principal); N17.9 Acute kidney failure, unspecified; I42.0 Dilated cardiomyopathy; I10 Essential (primary) hypertension; R05 Cough; E78.2 Mixed hyperlipidemia; I25.110 Atherosclerotic heart disease of native coronary artery with unstable angina pectoris; I49.3 Ventricular premature depolarization; Z82.49 Family history of ischemic heart disease and other diseases of the circulatory system; Z79.82 Long term (current) use of aspirin
CPT/HCPCS: 71010; 78452; 80048; 80053; 80061; 82550; 83735; 83880; 84484; 85002; 85025; 85610; 85730; 92928; 92929; 93005; 93017; 93306; 93454; A9502; C1725; C1769; C1874; C1887; C1893; J0171; J0461; J1644; J2250; J2270; J2785; J3246; J7030; Q0163; Q9967